=== PATIENT | female | born 1995 | race Caucasian/White ===

== ENCOUNTER 2016-09-13 13:24 | Emergency (ER) | payer MEDICAID, OTHER ==
[~2016-09-13] VITALS: Ht 154.9 cm; Wt 48.0 kg
[~2016-09-13 13:24] MED LIST: FERR-31 PO; NITR-58 PO; PREN-39 PO
[2016-09-13 13:28] VITALS: Ht 154.9 cm; Wt 48.0 kg
[2016-09-13] MEDS ORDERED: METOCLOPRAMIDE 10 MG INJ IV STA (14:02)
[2016-09-13] MEDS ORDERED: SOD CHLORIDE 0.9% 1,000 ML IV STA (14:02)
[2016-09-13 14:51] LABS: ADD SCAN DIFF NO
[2016-09-13 14:57] LABS: BASOPHILS % 0.2 % (0.0-2.0); EOSINOPHILS % 0.1 % (0.0-7.0); HEMATOCRIT 37.6 % (37.0-47.0); HEMOGLOBIN 12.1 g/dl (12.0-16.0); LYMPHOCYTES # 1.7 10^3/ul (0.8-2.9); LYMPHOCYTES % 17.7 % (18.0-55.0); MEAN CORPUSCULAR HEMOGLOBIN 24.7 pg (29.0-33.0); MEAN CORPUSCULAR HGB CONC 32.2 g/dl (32.0-37.0); MEAN CORPUSCULAR VOLUME 76.9 fl (72.0-104.0); MEAN PLATELET VOLUME 9.9 fl (7.4-10.4); MONOCYTE # 0.5 10^3/ul (0.3-0.9); MONOCYTES % 4.8 % (0.0-13.0); NEUTROPHIL # 7.6 10^3/ul (1.6-7.5); NEUTROPHILS % 76.9 % (30.0-74.0); PLATELET COUNT 317 10^3/UL (140-415); RED BLOOD COUNT 4.89 10^6/ul (4.20-5.40); RED CELL DISTRIBUTION WIDTH 17.4 % (11.5-14.5); WHITE BLOOD COUNT 9.9 10^3/ul (4.8-10.8)
[2016-09-13 14:58] LABS: ADD UMIC YES; URINE BILIRUBIN (Dip) 1+ (NEGATIVE); URINE BLOOD (Dip) NEGATIVE (NEGATIVE); URINE COLOR YELLOW (YELLOW); URINE GLUCOSE (Dip) NEGATIVE (NEGATIVE); URINE KETONES (Dip) 3+ (NEGATIVE); URINE LEUKOCYTE ESTERASE (Dip) 1+ (NEGATIVE); URINE NITRITE (Dip) NEGATIVE (NEGATIVE); URINE TOTAL PROTEIN (Dip) 1+ (NEGATIVE); URINE UROBILINOGEN (Dip) 1.0 E.U./dL (0.1-1.0)
[2016-09-13 15:04] LABS: ALBUMIN 4.4 g/dl (3.3-4.9)
[2016-09-13 15:05] LABS: POTASSIUM 3.6 mmol/L (3.5-5.1)
[2016-09-13 15:07] LABS: BILIRUBIN,INDIRECT 0.2 mg/dl (0-1.1); BILIRUBIN,TOTAL 0.2 mg/dl (0.2-1.3); CREATININE 0.44 mg/dl (0.44-1.00)
[2016-09-13 15:08] LABS: ALBUMIN/GLOBULIN RATIO 1.29; CALCIUM 9.6 mg/dl (8.4-10.2); TOTAL PROTEIN 7.8 g/dl (6.1-8.1)
[2016-09-13 15:54] LABS: ICTOTEST NEGATIVE (NEGATIVE); SQUAMOUS EPITHELIAL CELL,UR MODERATE; URINE RBCS 0-2 /HPF (0)
[2016-09-13] MEDS ORDERED: SOD CHLORIDE 0.9% 1,000 ML IV ONE (16:03)
[2016-09-13] MEDS ORDERED: METO10TA92 PO (16:07)
--- NOTE | 2016-09-13 16:18 | ERD ---
ER Documentation Chief Complaint Date/Time DATE: 09/13/16 TIME: 16:16 Chief Complaint 12 weeks with vomiting x 1 week HPI This 20-year-old female presents with vomiting for last week. Which is nonbilious nonbloody. She is approximately 12 weeks by dates. She denies pelvic pain or abdominal pain, vaginal bleeding, diarrhea, fevers, urinary complaints. ROS All systems reviewed and are negative except as per history of present illness. Medications Home Meds Active Scripts Metoclopramide* (Reglan*) 10 Mg Tablet, 10 MG PO Q6 Y for NAUSEA AND/OR VOMITING , #20 TAB Prov:MICHELLE ALEGRE MD 09/13/16 Reported Medications Nitrofurantoin Monohyd Macrocr* (Macrobid*) 100 Mg Capsr, 100 MG PO BID, CAP 01/09/15 Ferrous Sulfate (Iron Supplement) 1 Tab Tablet, 1 TAB PO DAILY 01/09/15 Vits W-Ca,Fe,Fa(<1MG) ( Vitamins) 1 Tab Tablet, 1 TAB PO for 7 Days 11/21/14 Allergies Allergies: Coded Allergies: No Known Allergy (Unverified , 05/16/14) PMhx/Soc Medical and Surgical Hx: pt denies Medical Hx, pt denies Surgical Hx Hx Alcohol Use: No Hx Substance Use: No Hx Tobacco Use: No Smoking Status: Never smoker Physical Exam Vitals Vital Signs Date Time Temp Pulse Resp B/P Pulse Ox O2 Delivery O2 Flow Rate FiO2 09/13/16 13:28 98.1 129 18 120/79 99 Physical Exam Const: [] Head: Atraumatic Eyes: Normal Conjunctiva ENT: Normal External Ears, Nose and Mouth. Neck: Full range of motion..~ No meningismus. Resp: Clear to auscultation bilaterally Cardio: Regular rate and rhythm, no murmurs Abd: Soft, non tender, non distended. Normal bowel sounds Skin: No petechiae or rashes Back: No midline or flank tenderness Ext: No cyanosis, or edema Neur: Awake and alert Psych: Normal Mood and Affect Result Diagram: 09/13/16 1441 09/13/16 1441 Results 24 hrs Laboratory Tests Test 09/13/16 14:41 Alanine Aminotransferase (ALT/SGPT) 16IU/L Albumin 4.4g/dl Albumin/Globulin Ratio 1.29 Alkaline Phosphatase 66IU/L Anion Gap 21 Aspartate Amino Transf (AST/SGOT) 21IU/L Basophils # 0.010^3/ul Basophils % 0.2% Blood Urea Nitrogen 11mg/dl Calcium Level 9.6mg/dl Carbon Dioxide Level 21mmol/L Chloride Level 103mmol/L Creatinine 0.44mg/dl Direct Bilirubin 0.00mg/dl Eosinophils # 0.010^3/ul Eosinophils % 0.1% Globulin 3.40g/dl Glucose Level 81mg/dl Hematocrit 37.6% Hemoglobin 12.1g/dl Indirect Bilirubin 0.2mg/dl Lipase 63U/L Lymphocytes # 1.710^3/ul Lymphocytes % 17.7% Mean Corpuscular Hemoglobin 24.7pg Mean Corpuscular Hemoglobin Concent 32.2g/dl Mean Corpuscular Volume 76.9fl Mean Platelet Volume 9.9fl Monocytes # 0.510^3/ul Monocytes % 4.8% Neutrophils # 7.610^3/ul Neutrophils % 76.9% Nucleated Red Blood Cells # 0.010^3/ul Nucleated Red Blood Cells % 0.0/100WBC Platelet Count 62352^3/UL Potassium Level 3.6mmol/L Red Blood Count 4.8910^6/ul Red Cell Distribution Width 17.4% Sodium Level 141mmol/L Total Bilirubin 0.2mg/dl Total Protein 7.8g/dl Urine Bilirubin 1+ Urine Clarity SLIGHTLY CLOUDY Urine Color YELLOW Urine Glucose NEGATIVE% Urine Hemoglobin NEGATIVE Urine Ictotest NEGATIVE Urine Ketones 3+ Urine Leukocyte Esterase 1+ Urine Microscopic RBC 0-2/HPF Urine Microscopic WBC 0-2/HPF Urine Nitrite NEGATIVE Urine Specific [place] 1.025 Urine Squamous Epithelial Cells MODERATE Urine Total Protein 1+ Urine Urobilinogen 1.0 E.U./dL Urine pH 6.5 White Blood Count 9.910^3/ul Current Medications Medications (Trade) Dose Ordered Sig/Vera Route PRN Reason Start Time Stop Time Status Last Admin Dose Admin Sodium Chloride (NS) 1,000 ml @ 1,000 mls/hr Q1H STAT IV 09/13/16 14:02 09/13/16 15:01 DC 09/13/16 14:49 Metoclopramide HCl 10 mg 10 mg ONCE STAT IV 09/13/16 14:02 09/13/16 14:04 DC 09/13/16 14:48 Sodium Chloride (NS) 1,000 ml @ 0 mls/hr Q0M ONCE IV 09/13/16 16:03 09/13/16 16:08 DC Procedures/MDM Given a one-week history of vomiting of her state. An IV was obtained. Patient was given Reglan 10 mg IV, CBC is normal CMP is normal. Urine shows 1+ leukocytes but white blood cells and no bacteria. Patient felt better after IV fluids, Reglan. Patient had positive heart tones on bedside Doppler exam. Patient presents with vomiting first trimester . Signs and symptoms not consistent with appendicitis, obstruction, significant dehydration. Signs or symptoms not consistent with UTI given absence of the WBCs and bacteria. Patient was treated with Reglan, instructions for bland diet and clear fluids and instructed to follow-up with OB as scheduled in 2 days. She should otherwise return for vomiting despite treatment, fevers, new worsening symptoms, vaginal bleeding, with primary doctor as scheduled. Departure Diagnosis: Primary Impression: Vomiting Vomiting type: unspecified Vomiting Intractability: unspecified Nausea presence: unspecified Qualified Code: R11.10 - Vomiting, intractability of vomiting not specified, presence of nausea not specified, unspecified vomiting type Condition: Stable Patient Instructions: Vomiting (6Y-Adult) Additional Instructions: Drink plenty of fluids and bland diet. Recheck for new or worsening symptoms or primary care doctor. MICHELLE ALEGRE MD Sep 13, 2016 16:18
[2016-09-13 16:31] VITALS: BP 102/66; PULSE 93; RESP 16; TEMP 98.2
== END 2016-09-13 16:33 | disposition home or self-care (01) ==
LOC: FTE 13:24
DX: O21.9 Vomiting of pregnancy, unspecified (principal); Z3A.12 12 weeks gestation of pregnancy
CPT/HCPCS: 36415; 80053; 81001; 83690; 85025; 96361; 96374; J2765; J7030; Z7502; 81003

== ENCOUNTER 2017-03-03 17:10 | Outpatient (CLI) | payer OTHER ==
[~2017-03-03 17:10] MED LIST changes: +METO10TA92 PO
--- NOTE | 2017-03-03 17:31 | RADRPT ---
PROCEDURE: US OB biophysical profile. CLINICAL INDICATION: decreased movements TECHNIQUE: Multiple sonographic images of the pelvis were obtained. The images were reviewed on a PACS workstation. COMPARISON: No prior studies are available for comparison. FINDINGS: There is a single viable intrauterine gestation. Cardiac activity is present with 152 beats per min beena. There is a vertex presentation. The placenta is fundal. There is no evidence of placental abruption. There is a normal amount of amniotic fluid with an MARNIE = 10.4 cm. Biophysical profile: movement 2/2 tone 2/2. breathing 2/2 MARNIE 2/2 Total 02/10 RPTAT: AA . IMPRESSION: Normal biophysical profile. . .Bert Gandara MD, MD Date Time Electronically viewed and signed by .Bert Gandara MD, MD on 03/03/2017 17:30 .S/
[2017-03-03 20:03] LABS: ADD UMIC YES; UR ASCORBIC ACID NEGATIVE (NEGATIVE); UR BACTERIA FEW /HPF (NONE SEEN); UR BILIRUBIN (Dip) NEGATIVE (NEGATIVE); UR BLOOD (Dip) NEGATIVE (NEGATIVE); UR CLARITY SLIGHTLY CLOUDY (CLEAR); UR COLOR YELLOW (YELLOW); UR GLUCOSE (Dip) NEGATIVE (NEGATIVE); UR KETONES (Dip) NEGATIVE (NEGATIVE); UR LEUKOCYTE ESTERASE (Dip) 3+ Leu/ul (NEGATIVE); UR MUCUS FEW /HPF (NONE SEEN); UR NITRITE (Dip) NEGATIVE (NEGATIVE); UR RBC 2 /HPF (0-5); UR SPECIFIC GRAVITY (Dip) 1.018 (1.003-1.030); UR SQUAMOUS EPITHELIAL CELL MODERATE /HPF (FEW); UR TOTAL PROTEIN (Dip) NEGATIVE (NEGATIVE); UR UROBILINOGEN (Dip) 2+ mg/dL (NEGATIVE)
--- NOTE | 2017-03-03 21:47 | TRIAGE ---
OB Triage Datetime Report Generated by CPN: 03/03/2017 21:47 Datetime: 03/03/2017 21:45 Stage of : OB Triage Datetime: 03/03/2017 21:27 Monitor Mode: Palpation Resting Tone [place]: Relaxed Contraction Comments: DR. SARINA PALPATED ABD TO CHECK UC PATTERN Datetime: 03/03/2017 20:30 Labor Evaluation Frequency: 2-6 Monitor Mode: External Duration (sec)2399: 40-60 Pattern: Normal: <= 5 Contractions in 10 Minutes Heart Rate FHR Baseline Rate: 125 FHR Baseline Changes: No Baseline Change Variability: Moderate 6-25 bpm Accelerations: 15X15 Datetime: 03/03/2017 19:38 Stage of : OB Triage Vaginal Exam Dilatation (cms): 3.0 Effacement (%): 50 Station: -2 Exam By: JAMES RN Membrane Status: Intact Datetime: 03/03/2017 19:32 Stage of : OB Triage Maternal Assessment Level of Consciousness: Fully Conscious Headache: Denies Blurred Vision: No Respiratory Effort: Unlabored; Regular Rhythm; Equal Expansion Nausea/Vomiting: Denies RUQ Epigastric Pain: Denies Facial Edema: None Fall Risk Assessment History of Falling: (0) No Secondary Diagnosis: (0) No Ambulatory Aid: (0) Bedrest/Nurse Assist IV Therapy: (0) No Gait: (0) Normal/Bedrest/Immobile Mental Status: (0) Oriented to Own Ability Fall Score: 0 Fall Risk Score Definition: No Risk: No action required Comment: PT. CONTINUES TO AMBULATE HALLWAY, INFORMED PT. TO RETURN TO ROOM FOR RECHECK OF CERVIX, PT. APPEARS COMFORTABLE, WALKING INDEPENDENTLY WITHOUT ASSISTANCE Datetime: 03/03/2017 18:15 Stage of : OB Triage Maternal Assessment Level of Consciousness: Fully Conscious Labor Evaluation Frequency: 9UC/HR Monitor Mode: External Duration (sec)2399: 40-80 Quality: Mild Resting Tone [place]: Relaxed Heart Rate FHR Baseline Rate: 135 Monitor Mode: External US Variability: Moderate 6-25 bpm Accelerations: 15X15 Decelerations: None Category: Category I Pain Assessment Pain Scale: 0 Pain Goal: 3 Membrane Status: Intact Vaginal Bleeding: None Datetime: 03/03/2017 18:13 Vaginal Exam Dilatation (cms): 3.0 Effacement (%): 50 Station: -2 Exam By: CRYSTALI Datetime: 03/03/2017 17:40 Assessment Type: Triage Maternal Assessment Level of Consciousness: Fully Conscious DTR's/Clonus: DTRs 2+; No Clonus Headache: Denies Blurred Vision: No Respiratory Effort: Unlabored; Regular Rhythm; Equal Expansion Breath Sounds, Left: Clear and Equal Breath Sounds, Right: Clear and Equal Nausea/Vomiting: Denies RUQ Epigastric Pain: Denies Lower Extremities Edema: None Degree: None Upper Extremities Edema: None Degree: None Facial Edema: None Fall Risk Assessment History of Falling: (0) No Secondary Diagnosis: (0) No Ambulatory Aid: (0) Bedrest/Nurse Assist IV Therapy: (0) No Gait: (0) Normal/Bedrest/Immobile Mental Status: (0) Oriented to Own Ability Fall Score: 0 Fall Risk Score Definition: No Risk: No action required Datetime: 03/03/2017 17:39 Time of Arrival: 03/03/2017 16:40 EGA: 37.1 Arrived By: Ambulatory Arrived From: Home Chief Complaint: PT HERE C/O DFM Movement: Decreased Contractions: Denies/Absent Rupture of Membranes: Denies Vaginal Bleeding: None Vaginal Discharge: Denies Recent Sexual Intercouse: Denies Abdominal Trauma: Not Applicable Patient Complaints: None Time Provider Notified: 03/03/2017 17:41 Provider Notified: SARINA Initial Plan: BPP/SVE Datetime: 03/03/2017 17:16 Monitor Mode: External Monitor Mode: External US
--- NOTE | 2017-03-03 21:48 | PN ---
Triage Information Date/Time 03/03/17 Reason for visit: DFM Weeks of Gestation 37w1d /Para Diabetes: none Hypertention: none Objective Heart Rate: 140's Contractions: 6-10 Minutes Apart Exam VE 3/50/-2 recked after 2hrs no change even thicker and posterior and firm cervix according to another RN Results/Medications Results 24 hrs Laboratory Tests Test 03/03/17 19:47 Urine Color YELLOW Urine Clarity SLIGHTLY CLOUDY A Urine pH 6.0 Urine Specific [place] 1.018 Urine Ketones NEGATIVE Urine Nitrite NEGATIVE Urine Bilirubin NEGATIVE Urine Urobilinogen 2+ H Urine Leukocyte Esterase 3+ H Urine Microscopic RBC 2 Urine Microscopic WBC 27 H Urine Squamous Epithelial Cells MODERATE Urine Calcium Oxalate Crystals MANY A Urine Bacteria FEW A Urine Mucus FEW A Urine Hemoglobin NEGATIVE Urine Glucose NEGATIVE Urine Total Protein NEGATIVE Medications Rx cephalexin 500mg q6hrs #28 Imaging Results BPP 02/10 MARNIE 10.4 Disposition: Discharge Assessment/Plan IUP 37w1d UTI poss early labor Plan RTH prn with routine labor inatructions increase fluid intake with medication SHANNA BRANCH MD Mar 03, 2017 21:48
== END 2017-03-03 21:30 | disposition home or self-care (01) ==
LOC: L-D 17:10 → OBT 17:10
PROVIDERS: ATTEND Obstetrics & Gynecology
DX: O36.8130 Decreased fetal movements, third trimester, not applicable or unspecified (principal); Z3A.37 37 weeks gestation of pregnancy
CPT/HCPCS: 76818; 81001; Z7500; G0463

== ENCOUNTER 2017-03-16 19:58 | Inpatient (IN) | payer OTHER ==
[~2017-03-16] VITALS: Ht 154.9 cm; Wt 54.5 kg
[~2017-03-16 19:58] MED LIST changes: -METO10TA92 PO; -NITR-58 PO
[2017-03-16 20:34] VITALS: BP 113/73; PULSE 100; RESP 17; Ht 154.9 cm; Wt 54.5 kg
[2017-03-16] MEDS ORDERED: CEPH500C PO (20:41)
[2017-03-16] MEDS ORDERED: CARBOPROST 250 MCG INJ IM PRN (21:30)
[2017-03-16] MEDS ORDERED: LIDOCAINE 1% (MPF) 30 ML INJ INJ PRN (21:30)
[2017-03-16] MEDS ORDERED: HYDROCODONE/APAP (5/325) TAB PO PRN (21:30)
[2017-03-16] MEDS ORDERED: IBUPROFEN 600 MG TAB PO PRN (21:30)
[2017-03-16] MEDS ORDERED: BUTORPHANOL 2 MG INJ IV PRN ×2 (21:30)
[2017-03-16] MEDS ORDERED: OXYTOCIN 30 UNITS/LR 500 ML IV SCH ×2 (21:30)
[2017-03-16] MEDS ORDERED: MISOPROSTOL 200 MCG TAB PR PRN (21:30)
[2017-03-16] MEDS ORDERED: METHYLERGONOVINE 0.2 MG INJ IM PRN (21:30)
[2017-03-16] MEDS ORDERED: LACTATED RINGER'S 1,000 ML IV PRN (21:30)
[2017-03-16] MEDS ORDERED: OXYTOCIN 30 UNITS/LR 500 ML IV PRN (21:30)
[2017-03-16] MEDS: LACTATED RINGER'S 1,000 ML IV SCH (21:51)
[2017-03-16 22:11] LABS: ABNORMAL IP MESSAGE 1; HEMATOCRIT 24.5 % (37.0-47.0); MEAN CORPUSCULAR HEMOGLOBIN 18.2 pg (29.0-33.0); MEAN CORPUSCULAR HGB CONC 27.8 g/dl (32.0-37.0); MEAN CORPUSCULAR VOLUME 65.7 fl (72.0-104.0); MEAN PLATELET VOLUME 10.7 fl (7.4-10.4); NUCLEATED RED BLOOD CELLS% 1.5 /100WBC (0.0-0.0); PLATELET COUNT 293 10^3/UL (140-415); RED BLOOD COUNT 3.73 10^6/ul (4.20-5.40); RED CELL DISTRIBUTION WIDTH 18.7 % (11.5-14.5); WHITE BLOOD COUNT 8.9 10^3/ul (4.8-10.8)
[2017-03-16 22:20] LABS: INR 1.01; PROTIME 13.3 Sec (12.2-14.2)
[2017-03-16 22:21] LABS: PARTIAL THROMBOPLASTIN TIME 26.4 Sec (25.0-35.0)
[2017-03-16 22:27] LABS: POSITIVE DIFF @See below
[2017-03-16 22:28] LABS: HEMOGLOBIN 6.8 g/dl (12.0-16.0)
[2017-03-16 23:06] LABS: LYMPHOCYTES # 2.8 10^3/ul (0.8-2.9); MONOCYTE # 0.4 10^3/ul (0.3-0.9); MONOCYTES % (M) 4 % (0-13)
[2017-03-16 23:08] LABS: HYPOCHROMASIA 2+ (0-0); MICROCYTOSIS 2+ (0-0)
[2017-03-17] MEDS: LACTATED RINGER'S 1,000 ML IV SCH ×3 (05:12→16:42)
[2017-03-17] MEDS ORDERED: OXYTOCIN 30 UNITS/LR 500 ML IV SCH (09:30)
[2017-03-17] MEDS ORDERED: FENTAnyl 2MCG/ML-ROPIV 0.2% 100 ML ONE (16:06)
[2017-03-17] MEDS ORDERED: ONDANSETRON 4 MG INJ IV PRN (18:00)
[2017-03-17] MEDS ORDERED: NALOXONE (0.4 MG/ML) INJ IV PRN (18:00)
[2017-03-17] MEDS ORDERED: FENTAnyl 2MCG/ML-ROPIV 0.2% 100 ML BAG EPI SCH (18:00)
[2017-03-17] MEDS ORDERED: DIPHENHYDRAMINE 50 MG INJ IV PRN (18:00)
--- NOTE | 2017-03-17 21:14 | HP ---
Date/Time of Note Date/Time of Note DATE: 03/17/17 TIME: 21:06 OB - History Hx of Present Free Text/Dictation 20y.o at 39w !d was admitted caitlyn induction of labor initial exam showed 3/60% -3 late entry and non compliant on admission H&H 6.8/24.5 x2 unit of RBc ready admitted for augmentation of labor with pitocin Chief Complaint: INduction of labor Estimated Due Date: Mar 23, 2017 : 2 Para: 1 Spontaneous : 0 Therapeutic : 0 Care: Limited Care Obstetrical Complications: None Medical Complications: Other (anemia) Past Family/Social History * Past Medical, Surgical, Family and Obstetric Histories reviewed from chart. Blood Type: A+ Rubella: immune RPR/VDRL: Negative GBS Status: Negative HBsAG: Negative OB Admission Exam Vital Signs Vital Signs Vital Signs Date Time Temp Pulse Resp B/P Pulse Ox O2 Delivery O2 Flow Rate FiO2 03/16/17 20:34 98.4 100 17 113/73 Room Air Physical Exam HEENT: WNL Heart: Rhythm Normal Lungs: Clear, Equal Abdomen: WNL Extremities: Normal Reflexes: Normal Cervical Dilatation: 3cm Effacement: Other (60%) Membranes: Intact Amniotic Fluid: Unevaluable Heart Rate: 130's Accelerations: Accelerations Present Decelerations: No Decelerations Varibility: Moderate Contractions on Admission: < 5 Minutes Apart Intensity: Mild Last 72 hours Lab Results CBC & BMP 03/16/17 21:40 OB Assessment/Plan Other Assessment: IUP 39w1d in early labor severe anemia Plan: Other (augmentation) Induction Method: per Pitocin Protocol Other plan: blood transfusion SHANNA BRANCH MD Mar 17, 2017 21:14
--- NOTE | 2017-03-17 21:18 | LDN ---
Date/Time of Note Date/Time of Note DATE: 03/17/17 TIME: 21:15 Delivery Summary normal vaginal delivery Weeks of Gestation 39w1d Placenta Delivered: Spontaneously Meconium: none Episiotomy: No Perineal laceration: 2 Laceration repair: 00ch gut Anesthesia type: Epidural Estimated blood loss: 300 Sponge & Needle done & correct: Yes All needle counts correct: Yes Any foreign bodies felt in the: No Problems: Delivery Information Sex Sex: male Apgars 1 Minute: 8 5 Minute: 9 Suctioning Nose & mouth suctioned at isaak: Yes Delee suction performed: No Umbilical Cord Umbilical cord with: 3 Vessels Cord Blood was obtained: Yes Mother & Baby Disposition Disposition Mom & Baby to Maternity; Good: Yes Mom transferred to: Other () Baby to NICU: No SHANNA BRANCH MD Mar 17, 2017 21:18
[2017-03-17] MEDS: FAMOTIDINE 20 MG INJ IV SCH (22:10)
[2017-03-18] MEDS ORDERED: LANOLIN 7 GM TUBE TOP PRN (01:00)
[2017-03-18] MEDS ORDERED: ZOLPIDEM 5 MG TAB PO PRN (01:00)
[2017-03-18] MEDS ORDERED: BENZOCAINE 20% 56 ML SPRAY TOP PRN (01:00)
[2017-03-18] MEDS ORDERED: MISOPROSTOL 200 MCG TAB PR PRN (01:00)
[2017-03-18] MEDS ORDERED: CARBOPROST 250 MCG INJ IM PRN (01:00)
[2017-03-18] MEDS ORDERED: OXYCODONE/ASPIRIN (4.88/325) TAB PO PRN ×2 (01:00)
[2017-03-18] MEDS ORDERED: METHYLERGONOVINE 0.2 MG INJ IM PRN (01:00)
[2017-03-18] MEDS ORDERED: WITCH HAZEL/GLYCERIN PAD PR PRN (01:00)
[2017-03-18] MEDS ORDERED: OXYTOCIN 30 UNITS/LR 500 ML IV PRN (01:00)
[2017-03-18 02:05] VITALS: BP 115/85; PULSE 72; RESP 20
[2017-03-18 03:01] LABS: ABNORMAL IP MESSAGE 1; BASOPHILS % 0.1 % (0.0-2.0); HEMATOCRIT 28.1 % (37.0-47.0); HEMOGLOBIN 8.6 g/dl (12.0-16.0); LYMPHOCYTES # 1.3 10^3/ul (0.8-2.9); LYMPHOCYTES % 5.7 % (18.0-55.0); MEAN CORPUSCULAR HEMOGLOBIN 22.8 pg (29.0-33.0); MEAN CORPUSCULAR HGB CONC 30.6 g/dl (32.0-37.0); MEAN CORPUSCULAR VOLUME 74.3 fl (72.0-104.0); MEAN PLATELET VOLUME 9.9 fl (7.4-10.4); MONOCYTE # 1.1 10^3/ul (0.3-0.9); MONOCYTES % 4.8 % (0.0-13.0); NEUTROPHILS % 88.7 % (30.0-74.0); NUCLEATED RED BLOOD CELLS # 0.1 10^3/ul (0.0-0.0); NUCLEATED RED BLOOD CELLS% 0.6 /100WBC (0.0-0.0); PLATELET COUNT 199 10^3/UL (140-415); RED BLOOD COUNT 3.78 10^6/ul (4.20-5.40); RED CELL DISTRIBUTION WIDTH 25.6 % (11.5-14.5); WHITE BLOOD COUNT 22.3 10^3/ul (4.8-10.8)
[2017-03-18 03:11] LABS: POSITIVE DIFF @See below
[2017-03-18 04:45] VITALS: BP 118/81; PULSE 72; RESP 20
[2017-03-18] MEDS: LACTATED RINGER'S 1,000 ML IV SCH ×4 (05:46→22:00)
[2017-03-18] MEDS: IBUPROFEN 600 MG TAB PO SCH ×3 (06:00→18:00)
[2017-03-18 08:15] VITALS: BP 116/74; PULSE 81; RESP 17
[2017-03-18] MEDS: SENNA/DOCUSATE NA (8.6MG/50MG) TAB PO SCH ×3 (09:00→21:00)
[2017-03-18 10:23] LABS: ABNORMAL IP MESSAGE 1; BASOPHIL # 0.1 10^3/ul (0.0-0.1); BASOPHILS % 0.2 % (0.0-2.0); HEMATOCRIT 25.5 % (37.0-47.0); HEMOGLOBIN 7.6 g/dl (12.0-16.0); LYMPHOCYTES # 2.8 10^3/ul (0.8-2.9); LYMPHOCYTES % 12.1 % (18.0-55.0); MEAN CORPUSCULAR HEMOGLOBIN 21.7 pg (29.0-33.0); MEAN CORPUSCULAR HGB CONC 29.8 g/dl (32.0-37.0); MEAN CORPUSCULAR VOLUME 72.6 fl (72.0-104.0); MONOCYTE # 1.2 10^3/ul (0.3-0.9); MONOCYTES % 5.2 % (0.0-13.0); NEUTROPHILS % 81.9 % (30.0-74.0); NUCLEATED RED BLOOD CELLS # 0.1 10^3/ul (0.0-0.0); NUCLEATED RED BLOOD CELLS% 0.5 /100WBC (0.0-0.0); PLATELET COUNT 215 10^3/UL (140-415); RED BLOOD COUNT 3.51 10^6/ul (4.20-5.40); RED CELL DISTRIBUTION WIDTH 25.3 % (11.5-14.5); WHITE BLOOD COUNT 23.2 10^3/ul (4.8-10.8)
[2017-03-18 10:25] LABS: POSITIVE DIFF @See below
[2017-03-18 12:25] VITALS: BP 111/73; PULSE 86; RESP 18
[2017-03-18] MEDS: FAMOTIDINE 20 MG INJ IV SCH ×2 (12:28→21:00)
--- NOTE | 2017-03-18 14:46 | PN ---
Date/Time of Note Date/Time of Note DATE: 03/18/17 TIME: 14:43 OB Subjective Subjective Subjective feels ok OB Objective Objective Objective vss aferile fundus firm lochia kin calf neg for tenderness OB Assessment/Plan Other Assessment: anemia but stable leukocytisis Other plan: SHANNA Braga MD Mar 18, 2017 14:45
[2017-03-18] MEDS: CEFAZOLIN 2 GM/50 ML (PMX) 50 ML IVPB SCH ×2 (15:00→22:49)
[2017-03-18 15:15] VITALS: BP 90/62; PULSE 73; RESP 17
[2017-03-18 18:32] LABS: ABNORMAL IP MESSAGE 1; BASOPHIL # 0.1 10^3/ul (0.0-0.1); BASOPHILS % 0.3 % (0.0-2.0); HEMOGLOBIN 7.9 g/dl (12.0-16.0); LYMPHOCYTES # 3.3 10^3/ul (0.8-2.9); LYMPHOCYTES % 15.1 % (18.0-55.0); MEAN CORPUSCULAR HEMOGLOBIN 21.4 pg (29.0-33.0); MEAN CORPUSCULAR HGB CONC 29.3 g/dl (32.0-37.0); MEAN CORPUSCULAR VOLUME 73.2 fl (72.0-104.0); MEAN PLATELET VOLUME 10.1 fl (7.4-10.4); MONOCYTES % 4.4 % (0.0-13.0); NEUTROPHILS % 79.5 % (30.0-74.0); NUCLEATED RED BLOOD CELLS # 0.1 10^3/ul (0.0-0.0); NUCLEATED RED BLOOD CELLS% 0.5 /100WBC (0.0-0.0); PLATELET COUNT 227 10^3/UL (140-415); RED BLOOD COUNT 3.69 10^6/ul (4.20-5.40); RED CELL DISTRIBUTION WIDTH 25.2 % (11.5-14.5)
[2017-03-18 18:43] LABS: POSITIVE DIFF @See below
[2017-03-18 20:00] VITALS: BP 98/58; PULSE 80; RESP 19
[2017-03-19 04:38] VITALS: BP 98/55; PULSE 79; RESP 18
[2017-03-19] MEDS: LACTATED RINGER'S 1,000 ML IV SCH ×2 (04:55→05:12)
[2017-03-19] MEDS: CEFAZOLIN 2 GM/50 ML (PMX) 50 ML IVPB SCH (05:06)
[2017-03-19] MEDS: IBUPROFEN 600 MG TAB PO SCH ×4 (05:22→17:38)
[2017-03-19 08:00] VITALS: BP 100/59; PULSE 75; RESP 19
[2017-03-19] MEDS: SENNA/DOCUSATE NA (8.6MG/50MG) TAB PO SCH (09:00)
[2017-03-19] MEDS: FAMOTIDINE 20 MG INJ IV SCH (09:00)
[2017-03-19] MEDS ORDERED: DIPHTH/TET/ACEL PERTUSS (ADULT) 0.5 ML VIAL IM* ONE (09:00)
[2017-03-19 09:30] LABS: ABNORMAL IP MESSAGE 1; BASOPHILS % 0.2 % (0.0-2.0); EOSINOPHILS # 0.1 10^3/ul (0.0-0.5); EOSINOPHILS % 0.6 % (0.0-7.0); LYMPHOCYTES # 4.5 10^3/ul (0.8-2.9); LYMPHOCYTES % 27.7 % (18.0-55.0); MEAN CORPUSCULAR HEMOGLOBIN 22.8 pg (29.0-33.0); MEAN CORPUSCULAR VOLUME 75.9 fl (72.0-104.0); MEAN PLATELET VOLUME 10.9 fl (7.4-10.4); NEUTROPHIL # 10.5 10^3/ul (1.6-7.5); NUCLEATED RED BLOOD CELLS # 0.1 10^3/ul (0.0-0.0); NUCLEATED RED BLOOD CELLS% 0.3 /100WBC (0.0-0.0); PLATELET COUNT 215 10^3/UL (140-415); RED BLOOD COUNT 3.03 10^6/ul (4.20-5.40); RED CELL DISTRIBUTION WIDTH 25.1 % (11.5-14.5); WHITE BLOOD COUNT 16.2 10^3/ul (4.8-10.8)
[2017-03-19 09:33] LABS: POSITIVE DIFF @See below
[2017-03-19 09:34] LABS: HEMOGLOBIN 6.9 g/dl (12.0-16.0)
[2017-03-19] MEDS ORDERED: MAGNESIUM HYDROXIDE 30ML CUP PO SCH (10:00)
--- NOTE | 2017-03-19 10:07 | DS ---
Date/Time of Note Date/Time of Note DATE: 03/19/17 TIME: 10:07 Obstetrical Discharge Record Final Diagnosis Final Diagnosis: Term delivered Vaginal Delivery Obstetrical Delivery: Spontaneous, Laceration, Repaired Complications Augmentation: Yes Rupture of Membranes: No Condition on Discharge Physical Assessment Last Vitals: vss afebrile Voiding: Yes Bowel Movement: Yes Breast: Soft, non-tender Calf Tenderness: No Patient Condition: Stable SHANNA BRANCH MD Mar 19, 2017 10:07
--- NOTE | 2017-03-19 10:09 | PD.PPDC ---
TOOL REPAIRER BENCH Discharge Instruction Diagnosis Final Diagnosis: s/p normal vaginal delivery, anemia Condition Patient Condition: Stable Diet Diet: Resume Regular Diet Activity/Restrictions Activity: May Shower Restrictions: No Exercising No Lifting No Sexual Activity Nothing in the Vagina No [place] No Tampons, douche Follow-up Follow-up with Physician: 2, 6, Week/Weeks Return to clinic for PUTTIER Instructions: Fever greater than 101 Chills Worsening abdominal pain Excessive Vaginal Bleeding More than 2 pads per hour Unable to tolerate diet OB Instructions: Breast Tenderness Depression Blurried Vision Headache SHANNA BRANCH MD Mar 19, 2017 10:09
[2017-03-19 16:00] VITALS: BP 108/62; PULSE 70
[2017-03-19 16:26] LABS: PATH REVIEW Y
== END 2017-03-19 20:10 | disposition home or self-care (01) | DRG 775 ==
LOC: L-D 19:58 → PP1 03-18 02:07
PROVIDERS: ADMIT Obstetrics & Gynecology; ATTEND Obstetrics & Gynecology
PROC: 10E0XZZ Delivery of Products of Conception, External Approach (ICD-10-PCS; principal; 2017-03-17)
PROC: 0KQM0ZZ Repair Perineum Muscle, Open Approach (ICD-10-PCS; 2017-03-17)
PROC: 3E033VJ Introduction of Other Hormone into Peripheral Vein, Percutaneous Approach (ICD-10-PCS; 2017-03-17)
DX: O70.1 Second degree perineal laceration during delivery (principal); Z37.0 Single live birth; Z3A.39 39 weeks gestation of pregnancy
CPT/HCPCS: 36430; 85025; 85610; 85730; 86592; 86706; 86850; 86900; 86901; 86920; 87340; 90715; A4310; J0690; J2210; J2405; J2590; J3010; J7120; P9016

== ENCOUNTER 2018-07-05 16:03 | Emergency (ER) | payer OTHER ==
[~2018-07-05] VITALS: Wt 49.6 kg
[~2018-07-05 16:03] MED LIST changes: +CEPH500C PO; -FERR-31 PO
[2018-07-05] MEDS ORDERED: METOCLOPRAMIDE 10 MG INJ IV ONE (16:30)
[2018-07-05] MEDS ORDERED: DIPHENHYDRAMINE 50 MG INJ IV ONE (16:30)
--- NOTE | 2018-07-05 18:14 | ERD ---
ER Documentation Chief Complaint Chief Complaint nausea and vomiting denies abd pain unknown gestation - HPI 22-year-old female presents with nonbilious nonbloody vomiting for past few days. Patient states that she just found out she was a couple weeks ago with a urine test. Patient states that she is usually irregular and does not remember her last menstrual period. Patient states that she does not have an NEWS WRITER. She denies abdominal/pelvic pain. Denies fevers, dysuria or diarrhea. ROS All systems reviewed and are negative except as per history of present illness. Medications Home Meds Active Scripts Metoclopramide* (Reglan*) 10 Mg Tablet, 10 MG PO Q6 PRN for NAUSEA AND/OR VOMITING, #10 TAB Prov:KINGSLEY CASEY PA-C 07/05/18 Vits #93-Iron Fum-FA ( Formula) 1 Each Tablet, 1 TAB PO DAILY, #30 TAB Prov:KINGSLEY CASEY PA-C 07/05/18 Cephalexin* (Keflex*) 500 Mg Capsule, 500 MG PO BID for 7 Days, CAP Prov:KINGSLEY CASEY PA-C 07/05/18 Reported Medications Cephalexin* (Cephalexin*) 500 Mg Capsule, 500 MG PO Q6, #28 CAP 03/16/17 Vits W-Ca,Fe,Fa(<1MG) ( Vitamins) 1 Tab Tablet, 1 TAB PO for 7 Days 11/21/14 Allergies Allergies: Coded Allergies: No Known Allergy (Unverified , 03/16/17) PMhx/Soc Medical and Surgical Hx: pt denies Medical Hx, pt denies Surgical Hx Hx Alcohol Use: No Hx Substance Use: No Hx Tobacco Use: No Smoking Status: Never smoker Physical Exam Vitals Vital Signs Date Temp Pulse Resp B/P (MAP) Pulse Ox O2 O2 Flow FiO2 Time Delivery Rate 07/05/18 99.4 103 17 105/70 98 Room Air 19:00 (82) 07/05/18 99.0 113 20 116/81 99 16:06 (93) Physical Exam Const: No acute distress Head: Atraumatic Eyes: Normal Conjunctiva ENT: Normal External Ears, Nose and Mouth. Neck: Full range of motion. No meningismus. Resp: Clear to auscultation bilaterally Cardio: Regular rate and rhythm, no murmurs Abd: Soft, non tender, non distended. Normal bowel sounds Skin: No petechiae or rashes Back: No midline or flank tenderness Ext: No cyanosis, or edema Neur: Awake and alert Psych: Normal Mood and Affect Result Diagram: 07/05/18 1644 07/05/18 1644 Results 24 hrs Laboratory Tests Test 07/05/18 16:44 07/05/18 18:17 White Blood Count 10.9 10^3/ul Red Blood Count 4.75 10^6/ul Hemoglobin 11.6 g/dl Hematocrit 36.2 % Mean Corpuscular Volume 76.2 fl Mean Corpuscular Hemoglobin 24.4 pg Mean Corpuscular Hemoglobin Concent 32.0 g/dl Red Cell Distribution Width 16.0 % Platelet Count 317 10^3/UL Mean Platelet Volume 9.7 fl Immature Granulocytes % 0.200 % Neutrophils % 81.1 % Lymphocytes % 14.1 % Monocytes % 4.0 % Eosinophils % 0.3 % Basophils % 0.3 % Nucleated Red Blood Cells % 0.0 /100WBC Immature Granulocytes # 0.020 10^3/ul Neutrophils # 8.8 10^3/ul Lymphocytes # 1.5 10^3/ul Monocytes # 0.4 10^3/ul Eosinophils # 0.0 10^3/ul Basophils # 0.0 10^3/ul Nucleated Red Blood Cells # 0.0 10^3/ul Sodium Level 140 mmol/L Potassium Level 3.8 mmol/L Chloride Level 106 mmol/L Carbon Dioxide Level 16 mmol/L Anion Gap 18 Blood Urea Nitrogen 8 mg/dl Creatinine 0.32 mg/dl Est Glomerular Filtrat Rate mL/min > 60 mL/min Glucose Level 84 mg/dl Calcium Level 9.6 mg/dl Total Bilirubin 0.2 mg/dl Direct Bilirubin 0.00 mg/dl Indirect Bilirubin 0.2 mg/dl Aspartate Amino Transf (AST/SGOT) 20 IU/L Alanine Aminotransferase (ALT/SGPT) 15 IU/L Alkaline Phosphatase 69 IU/L Total Protein 7.8 g/dl Albumin 4.7 g/dl Globulin 3.10 g/dl Albumin/Globulin Ratio 1.51 Beta HCG, Quantitative 604688.0 mIU/ml Urine Color YELLOW Urine Clarity SLIGHTLY CLOUDY Urine pH 6.0 Urine Specific [place] 1.026 Urine Ketones 2+ mg/dL Urine Nitrite NEGATIVE mg/dL Urine Bilirubin NEGATIVE mg/dL Urine Urobilinogen 1+ mg/dL Urine Leukocyte Esterase TRACE Lyla/ul Urine Microscopic RBC 18 /HPF Urine Microscopic WBC 4 /HPF Urine Squamous Epithelial Cells FEW /HPF Urine Bacteria FEW /HPF Urine Mucus FEW /HPF Urine Hemoglobin 1+ mg/dL Urine Glucose NEGATIVE mg/dL Urine Total Protein 2+ mg/dl Current Medications Medications Dose Sig/Vera Start Time Status Last (Trade) Ordered Route PRN Stop Time Admin Dose Reason Admin 10 mg ONCE ONCE 07/05/18 DC 07/05/18 Metoclopramid IV 16:30 16:48 e HCl 07/05/18 (Reglan) 16:32 25 mg ONCE ONCE 07/05/18 DC 07/05/18 Diphenhydrami IV 16:30 16:48 ne HCl 07/05/18 (Benadryl) 16:32 Cephalexin 500 mg ONCE ONCE 07/05/18 DC 07/05/18 (Keflex) PO 19:00 18:51 07/05/18 19:01 Procedures/MDM 22-year-old female who is 14 weeks presents with nausea and vomiting for the past few days. Did not have any abdominal pain, she is afebril e and well-appearing. Lab work was obtained, patient had mild leukocytosis. Urinalysis showed possible infection therefore she will be empirically treated with Keflex. Beta-hCG level is 116,310 OB ultrasound was ordered which showed 14 weeks and 6 days. Patient is stable to be discharged home with prescription for Reglan, Keflex and instructed to follow-up with an NEWS WRITER. Return precautions have been given she understands and agrees with this plan PROCEDURE: US OB. CLINICAL INDICATION: Size and dates TECHNIQUE: Multiple sonographic images of the pelvis and gravid uterus were obtained. The images were reviewed on a PACS workstation. COMPARISON: Ultrasound 03/03/2017 FINDINGS: There is a single viable intrauterine gestation. There is a vertex presentation. The placenta is posterior. There is no evidence for an abruption or placenta pre via. Measurements were made in order to determine age. The results are as follows: BPD = 2.73 cm HC = 10.60 cm AC = 8.91 cm FL = 1.55 cm EFW = 109 g HR= 152 bpm MVP = 4.10 cm Estimated gestational age of approximately 14 weeks and 6 days based on ultrasound measurements. The estimated date of delivery is 12/28/2018. IMPRESSION: Single viable intrauterine gestation of approximately 14 weeks and 6 days based on ultrasound measurements. Departure Diagnosis: Primary Impression: Nausea and vomiting Condition: Stable KINGSLEY CASEY PA-C Jul 05, 2018 18:14
[2018-07-05] MEDS ORDERED: METO10TA92 PO (18:45)
[2018-07-05] MEDS ORDERED: PREN-6 PO (18:45)
[2018-07-05] MEDS ORDERED: CEPH-443 PO (18:45)
[2018-07-05 19:00] VITALS: BP 105/70; PULSE 103; RESP 17
[2018-07-05] MEDS ORDERED: CEPHALEXIN 500 MG CAP PO ONE (19:00)
== END 2018-07-05 19:00 | disposition home or self-care (01) ==
LOC: FTE 16:03
DX: O21.9 Vomiting of pregnancy, unspecified (principal); Z3A.14 14 weeks gestation of pregnancy
CPT/HCPCS: 76805; 80053; 81001; 84702; 85025; 86900; 86901; 87086; 96374; 96375; J1200; J2765; Z7502; Z7610

== ENCOUNTER 2018-07-11 13:50 | Emergency (ER) | payer OTHER ==
[~2018-07-11] VITALS: Ht 157.5 cm; Wt 47.7 kg
[~2018-07-11 13:50] MED LIST changes: +CEPH-443 PO; +METO10TA92 PO; +PREN-6 PO
[2018-07-11 13:54] VITALS: Ht 157.5 cm; Wt 47.7 kg
[2018-07-11] MEDS ORDERED: SOD CHLORIDE 0.9% 1,000 ML IV STA ×2 (15:06→18:00)
[2018-07-11] MEDS ORDERED: ONDANSETRON 4 MG INJ IV STA (15:06)
--- NOTE | 2018-07-11 16:22 | NUR ---
SS Note: SS Consult Pt's a 22 y/o female presenting w/ 15 week PNC, Depression and Anxiety. Pt's A/OX4, ambulatory and resting comfortably in bed, mother at bedside lending emotional support. Pt lives w/ spouse, Reagan Rojas in a 1st floor Apt, makes own medical decisions and contracts for safety. Pt reports having difficulty eating since learning she's (06/17/18). Pt's states she did not plan the PNC however, she's going to keep the child. Pt denies having SI, HI, AH/VH, states she does not want to have anymore children after this delivery. Pt states she's afraid she's going to vomit if she eats and has not experienced nausea and vomiting w/ previous PNC's. SWer asked pt is her in agreement w/ her plan to d/c having children? Pt replied "I haven't talked to him yet." Pt will be seen by Telepsychiatrist in the ER and does not meet criteria for admission. DCP pending status, ER MD. aware, SWer to remain available for f/u and assistance as needed.
[2018-07-11] MEDS ORDERED: OLANZAPINE 2.5 MG TAB PO ONE (18:00)
--- NOTE | 2018-07-11 18:08 | PSY ---
Date/Time of Note Date/Time of Note DATE: 07/11/18 TIME: 17:52 Psychiatric Subjective Eval Consent Pt consented to telemedicine: Yes Subjective Evaluation Patient location: emergency Chief Complaint: Patient brought by mother who is concerned about her depression Reason for consult: depression History of present illness patient is a 22 yo female living with her and 2 kids, with no PPH 4 months who came to the ER due to feeling depressed and not eating for about 2 weeks due to "my mind telling me not to eat " and due to nausea and vomitting, she told the ER doctor that she did not want to be and was on contraception, she told her that she was keeping the baby due to cultural reasons, she already has 2 kids with her . she states that she has been hearing voices telling her not to eat because she does not want to have the baby, she states that she has been feeling depressed, hopeless and helpless since she found out she was as well as anxious and unable to sleep, she denies any drug or alcohol abuse, denies any si or hi, and mother at bed side confirm her history, she states that she does not want to be discharged because she is afraid she might not be eating. Past psychiatric history denies Hospitalization: no Family History denies Medical history Problems Medical Problems: (1) Hyperemesis Status: Acute (2) Nausea and vomiting Status: Acute (3) Pyuria Status: Acute (4) Vomiting Status: Acute Allergies: Coded Allergies: No Known Allergy (Unverified , 07/11/18) Substance Abuse Substance use: No known substance abuse Social History Marital status: Level of education: hs DPA/Conservatorship: No Occupation/Intermediate: no Psychiatric Objective Eval Review of Systems: Review of Systems: Not Applicable Physical Examination: Physical Examination: Applicable Sleep: Insomnia Appetite: Decreased, Weight Loss Energy: Decreased Interest: Decreased Mental Status Examination: Appearance: Groomed Eye Contact: Good Psychomotor Activity: Normal Behavior: Cooperative Speech: Clear AFFECT: Depressed Mood: Depressed Though Process: Linear Thought Content: Hallucinations Suicidal: No Homicidal: No On 72 hour hold: No Orientation: x3 Cognition: Alert Insight: Impared Judgement: Impared Attention Span: Distractible Laboratory Results Laboratory Tests Test 07/11/18 14:46 White Blood Count 12.5 10^3/ul Red Blood Count 4.99 10^6/ul Hemoglobin 12.2 g/dl Hematocrit 37.1 % Mean Corpuscular Volume 74.3 fl Mean Corpuscular Hemoglobin 24.4 pg Mean Corpuscular Hemoglobin Concent 32.9 g/dl Red Cell Distribution Width 16.6 % Platelet Count 275 10^3/UL Mean Platelet Volume 9.7 fl Immature Granulocytes % 0.300 % Neutrophils % 81.4 % Lymphocytes % 11.1 % Monocytes % 6.7 % Eosinophils % 0.3 % Basophils % 0.2 % Nucleated Red Blood Cells % 0.0 /100WBC Immature Granulocytes # 0.040 10^3/ul Neutrophils # 10.2 10^3/ul Lymphocytes # 1.4 10^3/ul Monocytes # 0.8 10^3/ul Eosinophils # 0.0 10^3/ul Basophils # 0.0 10^3/ul Nucleated Red Blood Cells # 0.0 10^3/ul Prothrombin Time 17.9 Sec Prothrombin Time Ratio 1.4 INR International Normalized Ratio 1.47 Activated Partial Thromboplast Time 28.1 Sec Urine Color MYRON Urine Clarity CLOUDY Urine pH 6.0 Urine Specific [place] 1.021 Urine Ketones 2+ mg/dL Urine Nitrite NEGATIVE mg/dL Urine Bilirubin NEGATIVE mg/dL Urine Urobilinogen 2+ mg/dL Urine Leukocyte Esterase TRACE Lyla/ul Urine Microscopic RBC 2 /HPF Urine Microscopic WBC 3 /HPF Urine Squamous Epithelial Cells MODERATE /HPF Urine Bacteria FEW /HPF Urine Mucus FEW /HPF Urine Hemoglobin NEGATIVE mg/dL Urine Glucose NEGATIVE mg/dL Urine Total Protein 2+ mg/dl Sodium Level 137 mmol/L Potassium Level 3.2 mmol/L Chloride Level 103 mmol/L Carbon Dioxide Level 19 mmol/L Anion Gap 15 Blood Urea Nitrogen 5 mg/dl Creatinine 0.40 mg/dl Est Glomerular Filtrat Rate mL/min > 60 mL/min Glucose Level 115 mg/dl Calcium Level 9.7 mg/dl Total Bilirubin 0.2 mg/dl Direct Bilirubin 0.00 mg/dl Indirect Bilirubin 0.2 mg/dl Aspartate Amino Transf (AST/SGOT) 73 IU/L Alanine Aminotransferase (ALT/SGPT) 73 IU/L Alkaline Phosphatase 82 IU/L Total Protein 8.4 g/dl Albumin 4.6 g/dl Globulin 3.80 g/dl Albumin/Globulin Ratio 1.21 Salicylates Level < 1.0 mg/dl Acetaminophen Level < 10.0 ug/ml Ethyl Alcohol Level < 10.0 mg/dl Assessment and Plan Assessment/Diagnosis Diagnosis unspecified mood do Recommendation/Plan Medication Management zyprexa 2.5 mg po bid first dose now Multiple antipsychotics: No Discharge Disposition: Psychiatric inpatient Legal Status: Place involuntary hold Other In my opinion, patient currently MEETS criterion for inpatient care and CANNOT be safely treated at a lower level of care today as evidenced by the following risk factors: voluntarily not eating due to delusion and hallucination and not eating due to a unacceptable wish to harm her baby PIETRO SLOAN MD Jul 11, 2018 18:03
--- NOTE | 2018-07-11 19:11 | ERD ---
ER Documentation Chief Complaint Chief Complaint Patient brought by mother who is concerned about her depression HPI This is a 22-year-old female 3 para 2 roughly 15 weeks dated by last mental period who has not received any care. The patient presents to the emergency department as she states she is feeling sad. She states she has no suicidal homicidal thoughts or ideations. She indicated that this was not a planned and she was on oral contraceptive pills 1 she became . She is to healthy children at home. She lives with her . She was seen and evaluated in the emergency department roughly 6 days ago for dehydration. She indicates she has had no abdominal tenderness or vaginal bleeding. Her family stated they were very concerned as they state the patient had decreased interaction with her children at home, refuses to eat, is hearing voices, is very tearful, and has been not wanting to get out of bed. When I was spoke with the patient alone she stated that this was not a planned but she does not have any thoughts of wanting to terminate the . She states that "her mind is telling her not to eat." She states she is afraid that she will vomit. However she also indicates that her mind is telling her "to not feed the baby." ROS All systems reviewed and are negative except as per history of present illness. Medications Home Meds Discontinued Reported Medications Cephalexin* (Cephalexin*) 500 Mg Capsule, 500 MG PO Q6, #28 CAP 03/16/17 Vits W-Ca,Fe,Fa(<1MG) ( Vitamins) 1 Tab Tablet, 1 TAB PO for 7 Days 11/21/14 Discontinued Scripts Metoclopramide* (Reglan*) 10 Mg Tablet, 10 MG PO Q6 PRN for NAUSEA AND/OR VOMITING, #10 TAB Prov:KINGSLEY CASEY PA-C 07/05/18 Vits #93-Iron Fum-FA ( Formula) 1 Each Tablet, 1 TAB PO DAILY, #30 TAB Prov:KINGSLEY CASEYC 07/05/18 Cephalexin* (Keflex*) 500 Mg Capsule, 500 MG PO BID for 7 Days, CAP Prov:KINGSLEY CASEY-C 07/05/18 Allergies Allergies: Coded Allergies: No Known Allergy (Unverified , 07/11/18) PMhx/Soc Medical and Surgical Hx: pt denies Medical Hx, pt denies Surgical Hx Hx Alcohol Use: No Hx Substance Use: No Hx Tobacco Use: No Smoking Status: Never smoker Physical Exam Vitals Vital Signs Date Temp Pulse Resp B/P (MAP) Pulse Ox O2 O2 Flow FiO2 Time Delivery Rate 07/11/18 98.0 136 20 111/78 97 13:54 (89) Physical Exam Constitutional:Well-developed. Well-nourished. HEENT:Normocephalic. Atraumatic.Pupils were equal round reactive to light. Very dry mucous membranes.No tonsillar exudates. Neck: No nuchal rigidity. No lymphadenopathy. No posterior cervical spine tenderness or step-offs. Respiratory: Not using accessory muscles of respiration.Lungs were clear to auscultation bilaterally. No rhonchi. No rales. No wheezing. Cardiovascular: Regular rate regular rhythm.No murmurs. No rubs were appreciated.S1, S2 normal. Distal pulses are palpable 2+ bilaterally. GI: Abdomen was soft. Gravid uterus. Nontender. Non Distended. No pulsatile abdominal masses or bruits. No rebound. No guarding. Bowel sounds were present and normal. Muscle skeletal: Full range of motion of both the upper and lower extremities bilaterally.Normal muscle tone.No assymetrical calf tenderness or swelling. Skin: No petechia, no purpura. No lesions on the palms or the soles of the feet. No maculopapular rash. NEURO: Patient was alert, awake, orientated x3.No facial droop. Gait observed and normal with no ataxia.Speech had regular rate and rhythm. No focal neurologi nava deficits. PSYCH: Patient made poor eye contact. Spoke in a soft tone. Patient was experiencing auditory hallucinations with no visual or tactile hallucinations. She denied any suicidal homicidal thoughts or ideations. Result Diagram: 07/11/18 1446 07/11/18 1446 Results 24 hrs Laboratory Tests Test 07/11/18 14:46 White Blood Count 12.5 10^3/ul Red Blood Count 4.99 10^6/ul Hemoglobin 12.2 g/dl Hematocrit 37.1 % Mean Corpuscular Volume 74.3 fl Mean Corpuscular Hemoglobin 24.4 pg Mean Corpuscular Hemoglobin Concent 32.9 g/dl Red Cell Distribution Width 16.6 % Platelet Count 275 10^3/UL Mean Platelet Volume 9.7 fl Immature Granulocytes % 0.300 % Neutrophils % 81.4 % Lymphocytes % 11.1 % Monocytes % 6.7 % Eosinophils % 0.3 % Basophils % 0.2 % Nucleated Red Blood Cells % 0.0 /100WBC Immature Granulocytes # 0.040 10^3/ul Neutrophils # 10.2 10^3/ul Lymphocytes # 1.4 10^3/ul Monocytes # 0.8 10^3/ul Eosinophils # 0.0 10^3/ul Basophils # 0.0 10^3/ul Nucleated Red Blood Cells # 0.0 10^3/ul Prothrombin Time 17.9 Sec Prothrombin Time Ratio 1.4 INR International Normalized Ratio 1.47 Activated Partial Thromboplast Time 28.1 Sec Urine Color MYRON Urine Clarity CLOUDY Urine pH 6.0 Urine Specific [place] 1.021 Urine Ketones 2+ mg/dL Urine Nitrite NEGATIVE mg/dL Urine Bilirubin NEGATIVE mg/dL Urine Urobilinogen 2+ mg/dL Urine Leukocyte Esterase TRACE Lyla/ul Urine Microscopic RBC 2 /HPF Urine Microscopic WBC 3 /HPF Urine Squamous Epithelial Cells MODERATE /HPF Urine Bacteria FEW /HPF Urine Mucus FEW /HPF Urine Hemoglobin NEGATIVE mg/dL Urine Glucose NEGATIVE mg/dL Urine Total Protein 2+ mg/dl Sodium Level 137 mmol/L Potassium Level 3.2 mmol/L Chloride Level 103 mmol/L Carbon Dioxide Level 19 mmol/L Anion Gap 15 Blood Urea Nitrogen 5 mg/dl Creatinine 0.40 mg/dl Est Glomerular Filtrat Rate mL/min > 60 mL/min Glucose Level 115 mg/dl Calcium Level 9.7 mg/dl Total Bilirubin 0.2 mg/dl Direct Bilirubin 0.00 mg/dl Indirect Bilirubin 0.2 mg/dl Aspartate Amino Transf (AST/SGOT) 73 IU/L Alanine Aminotransferase (ALT/SGPT) 73 IU/L Alkaline Phosphatase 82 IU/L Total Protein 8.4 g/dl Albumin 4.6 g/dl Globulin 3.80 g/dl Albumin/Globulin Ratio 1.21 Salicylates Level < 1.0 mg/dl Urine Opiates Screen Negative Acetaminophen Level < 10.0 ug/ml Urine Barbiturates Negative Urine Amphetamines Screen Negative Urine Benzodiazepines Screen Negative Urine Cocaine Screen Negative Urine Cannabinoids Negative Ethyl Alcohol Level < 10.0 mg/dl Current Medications Medications Dose Sig/Vera Start Time Status Last (Trade) Ordered Route PRN Stop Time Admin Dose Reason Admin Sodium 1,000 ml @ Q1H STAT 07/11/18 DC 07/11/18 Chloride 1,000 mls/hr IV 15:06 07/11/18 15:40 16:05 Ondansetron 4 mg ONCE STAT 07/11/18 DC 07/11/18 HCl (Zofran IV 15:06 07/11/18 15:40 Inj) 15:07 Sodium 1,000 ml @ Q1H STAT 07/11/18 DC 07/11/18 Chloride 1,000 mls/hr IV 18:00 07/11/18 18:21 18:59 Olanzapine 2.5 mg ONCE ONCE 07/11/18 DC 07/11/18 (Zyprexa) PO 18:00 07/11/18 18:21 18:01 Procedures/MDM This is a 22-year-old female that presented to the emergency department in second trimester . She had no evidence of hyperemesis gravidarum I was concerned with the patient undergoing depression during . Therefore felt it was necessary to obtain a telemetry psych evaluation hours after she was medically cleared by myself as there is no evidence of severe electrolyte abnormalities, preeclampsia, threatened miscarriage. The patient had an ultrasound that was ordered and reviewed by myself the radiologist indicate a single live intrauterine with no evidence of a claims he appear she received IV fluids and Zofran. After speaking with the telemetry psychiatrist she did feel that the patient met criteria for hold as she was gravely disabled and unable to care for herself at this time in her . The telemetry psychiatrist suggested administering 2.5 mg of Zyprexa which I provided the patient. Departure Diagnosis: Primary Impression: Depression Depression Type: unspecified Qualified Codes: F32.9 - Major depressive di sorder, single episode, unspecified Additional Impression: Second trimester Condition: Serious CAIN ESCOBEDO MD Jul 11, 2018 19:11
[2018-07-12] MEDS ORDERED: ONDANSETRON (ODT) 4 MG TAB ODT STA (09:21)
--- NOTE | 2018-07-12 10:40 | QN ---
Documentation Comment Observation Note: Time: 4 hours Family Hx: Negative for diabetes Evaluation: Multiple exams showed improving symptoms and no evidence of clinical decompensation. NELL CHARLES MD Jul 12, 2018 10:40
[2018-07-12] MEDS: OLANZAPINE (ODT) 5 MG TAB ODT SCH ×2 (11:21→21:00)
--- NOTE | 2018-07-12 15:51 | PSY ---
Date/Time of Note Date/Time of Note DATE: 07/12/18 TIME: 15:46 Psychiatric Subjective Eval Consent Pt consented to telemedicine: Yes Subjective Evaluation Patient location: emergency Chief Complaint: Patient brought by mother who is concerned about her depression Reason for consult: depression History of present illness 22 yo female, a mother of 2, 15 weeks , BIB her family due to refusing to eat for 15 weeks. Pt was seen by Dr Padilla and told her she is not eating out of fear of vomiting; she also states she wants to keep the baby but feels like she has to harm the baby by not eating. Pt was seen with her mother and at bedtime.PT says she has been eating while in ED. I reviewed RN quan whiting - pt refused food and water. Pt denies to me si or hi,denies depression but she has very flat and guarded affect, soft voice. Past psychiatric history denies Hospitalization: no Medical history Problems Medical Problems: (1) Depression Status: Acute (2) Hyperemesis Status: Acute (3) Nausea and vomiting Status: Acute (4) Pyuria Status: Acute (5) Second trimester Status: Acute (6) Vomiting Status: Acute Allergies: Coded Allergies: No Known Allergy (Unverified , 07/11/18) Substance Abuse Substance use: No known substance abuse Social History Marital status: Level of education: hs DPA/Conservatorship: No Occupation/Correction: no Psychiatric Objective Eval Mental Status Examination: Appearance: Groomed Eye Contact: Good Psychomotor Activity: Normal Behavior: Cooperative, Guarded Speech: Soft, Monotone AFFECT: Depressed Mood: Depressed Though Process: Illogical Thought Content: Normal Suicidal: No Homicidal: No On 72 hour hold: Yes Orientation: x4 Cognition: Alert Insight: Impared Judgement: Impared Laboratory Results Laboratory Tests Test 07/11/18 14:46 White Blood Count 12.5 10^3/ul Red Blood Count 4.99 10^6/ul Hemoglobin 12.2 g/dl Hematocrit 37.1 % Mean Corpuscular Volume 74.3 fl Mean Corpuscular Hemoglobin 24.4 pg Mean Corpuscular Hemoglobin Concent 32.9 g/dl Red Cell Distribution Width 16.6 % Platelet Count 275 10^3/UL Mean Platelet Volume 9.7 fl Immature Granulocytes % 0.300 % Neutrophils % 81.4 % Lymphocytes % 11.1 % Monocytes % 6.7 % Eosinophils % 0.3 % Basophils % 0.2 % Nucleated Red Blood Cells % 0.0 /100WBC Immature Granulocytes # 0.040 10^3/ul Neutrophils # 10.2 10^3/ul Lymphocytes # 1.4 10^3/ul Monocytes # 0.8 10^3/ul Eosinophils # 0.0 10^3/ul Basophils # 0.0 10^3/ul Nucleated Red Blood Cells # 0.0 10^3/ul Prothrombin Time 17.9 Sec Prothrombin Time Ratio 1.4 INR International Normalized Ratio 1.47 Activated Partial Thromboplast Time 28.1 Sec Urine Color MYRON Urine Clarity CLOUDY Urine pH 6.0 Urine Specific [place] 1.021 Urine Ketones 2+ mg/dL Urine Nitrite NEGATIVE mg/dL Urine Bilirubin NEGATIVE mg/dL Urine Urobilinogen 2+ mg/dL Urine Leukocyte Esterase TRACE Lyla/ul Urine Microscopic RBC 2 /HPF Urine Microscopic WBC 3 /HPF Urine Squamous Epithelial Cells MODERATE /HPF Urine Bacteria FEW /HPF Urine Mucus FEW /HPF Urine Hemoglobin NEGATIVE mg/dL Urine Glucose NEGATIVE mg/dL Urine Total Protein 2+ mg/dl Sodium Level 137 mmol/L Potassium Level 3.2 mmol/L Chloride Level 103 mmol/L Carbon Dioxide Level 19 mmol/L Anion Gap 15 Blood Urea Nitrogen 5 mg/dl Creatinine 0.40 mg/dl Est Glomerular Filtrat Rate mL/min > 60 mL/min Glucose Level 115 mg/dl Calcium Level 9.7 mg/dl Total Bilirubin 0.2 mg/dl Direct Bilirubin 0.00 mg/dl Indirect Bilirubin 0.2 mg/dl Aspartate Amino Transf (AST/SGOT) 73 IU/L Alanine Aminotransferase (ALT/SGPT) 73 IU/L Alkaline Phosphatase 82 IU/L Total Protein 8.4 g/dl Albumin 4.6 g/dl Globulin 3.80 g/dl Albumin/Globulin Ratio 1.21 Salicylates Level < 1.0 mg/dl Urine Opiates Screen Negative Acetaminophen Level < 10.0 ug/ml Urine Barbiturates Negative Urine Amphetamines Screen Negative Urine Benzodiazepines Screen Negative Urine Cocaine Screen Negative Urine Cannabinoids Negative Ethyl Alcohol Level < 10.0 mg/dl Assessment and Plan Assessment/Diagnosis Diagnosis Unspecified psychosis, rule out. Unspecified depressive disorder. Recommendation/Plan Medication Management defer to inpt Multiple antipsychotics: No Discharge Disposition: Psychiatric inpatient Legal Status: Continue involuntary hold Other d/w Dr Belcher, per nursing notes, pt has been refusing food and water; pt states, she has been eating. Pt still meets GD criteria. PLease monitor her food and water intake. Transfer to [facility] psych. GUICHO VELASQUEZ MD Jul 12, 2018 15:51
--- NOTE | 2018-07-12 18:10 | PSY ---
Date/Time of Note Date/Time of Note DATE: 07/12/18 TIME: 20:59 Psychiatric Subjective Eval Consent Pt consented to telemedicine: Yes Subjective Evaluation Patient location: emergency Chief Complaint: Patient brought by mother who is concerned about her depression Reason for consult: depression History of present illness HPI: 22 yo female with no formal psych hx, per two previous notes from Drs. Padilla and Mary, pt is . The notes report that pt has been hearing voices (unclear if AH or her own voices) not to eat in order to hurt the child, and that she "has" to hurt the child. Per notes, has been very depressed for 2 weeks, not eating or sleeping, per notes. spoke with pt. She completely denies the report above. Denies depression, denies voices or that she is not eating in any way related to her fetus. Reports she wants to keep the child. Denies any psych hx. Reports the only reason she was not eating was due to nausea. She reports that the information in the previous 2 notes was completely made up. Past Psych Hx: denies PMHx: denies nkda Meds: antibiotics MSE: casually groomed, normal speech with decreased prosody, appears very depressed though denies, flat affect, organized, denies delusions or avh or si/hi, impaired reliability Imp: 22 yo female. Appears depressed and per previous notes was not eating in order to harm child, though pt fully denies this Recommend [id number] for further eval as, given that pt appears depressed and per notes was not functioning and may have been hearing voices telling her not to eat and potentially to not to eat to harm fetus, there is not enough evidence to suggest pt is not gravely disabled, consider speaking with other family members and her OB who may be able to provide additional information on this consider ethics consult given complicated nature of case for agitation consider benadryl 25-50mg po or im for agitation d/w Attending Hospitalization: no Medical history Problems Medical Problems: (1) Depression Status: Acute (2) Hyperemesis Status: Acute (3) Nausea and vomiting Status: Acute (4) Pyuria Status: Acute (5) Second trimester Status: Acute (6) Vomiting Status: Acute Allergies: Coded Allergies: No Known Allergy (Unverified , 07/11/18) Social History Marital status: Level of education: hs DPA/Conservatorship: No Occupation/Fdc: no Psychiatric Objective Eval Mental Status Examination: Laboratory Results Laboratory Tests Test 07/11/18 14:46 White Blood Count 12.5 10^3/ul Red Blood Count 4.99 10^6/ul Hemoglobin 12.2 g/dl Hematocrit 37.1 % Mean Corpuscular Volume 74.3 fl Mean Corpuscular Hemoglobin 24.4 pg Mean Corpuscular Hemoglobin Concent 32.9 g/dl Red Cell Distribution Width 16.6 % Platelet Count 275 10^3/UL Mean Platelet Volume 9.7 fl Immature Granulocytes % 0.300 % Neutrophils % 81.4 % Lymphocytes % 11.1 % Monocytes % 6.7 % Eosinophils % 0.3 % Basophils % 0.2 % Nucleated Red Blood Cells % 0.0 /100WBC Immature Granulocytes # 0.040 10^3/ul Neutrophils # 10.2 10^3/ul Lymphocytes # 1.4 10^3/ul Monocytes # 0.8 10^3/ul Eosinophils # 0.0 10^3/ul Basophils # 0.0 10^3/ul Nucleated Red Blood Cells # 0.0 10^3/ul Prothrombin Time 17.9 Sec Prothrombin Time Ratio 1.4 INR International Normalized Ratio 1.47 Activated Partial Thromboplast Time 28.1 Sec Urine Color MYRON Urine Clarity CLOUDY Urine pH 6.0 Urine Specific [place] 1.021 Urine Ketones 2+ mg/dL Urine Nitrite NEGATIVE mg/dL Urine Bilirubin NEGATIVE mg/dL Urine Urobilinogen 2+ mg/dL Urine Leukocyte Esterase TRACE Lyla/ul Urine Microscopic RBC 2 /HPF Urine Microscopic WBC 3 /HPF Urine Squamous Epithelial Cells MODERATE /HPF Urine Bacteria FEW /HPF Urine Mucus FEW /HPF Urine Hemoglobin NEGATIVE mg/dL Urine Glucose NEGATIVE mg/dL Urine Total Protein 2+ mg/dl Sodium Level 137 mmol/L Potassium Level 3.2 mmol/L Chloride Level 103 mmol/L Carbon Dioxide Level 19 mmol/L Anion Gap 15 Blood Urea Nitrogen 5 mg/dl Creatinine 0.40 mg/dl Est Glomerular Filtrat Rate mL/min > 60 mL/min Glucose Level 115 mg/dl Calcium Level 9.7 mg/dl Total Bilirubin 0.2 mg/dl Direct Bilirubin 0.00 mg/dl Indirect Bilirubin 0.2 mg/dl Aspartate Amino Transf (AST/SGOT) 73 IU/L Alanine Aminotransferase (ALT/SGPT) 73 IU/L Alkaline Phosphatase 82 IU/L Total Protein 8.4 g/dl Albumin 4.6 g/dl Globulin 3.80 g/dl Albumin/Globulin Ratio 1.21 Salicylates Level < 1.0 mg/dl Urine Opiates Screen Negative Acetaminophen Level < 10.0 ug/ml Urine Barbiturates Negative Urine Amphetamines Screen Negative Urine Benzodiazepines Screen Negative Urine Cocaine Screen Negative Urine Cannabinoids Negative Ethyl Alcohol Level < 10.0 mg/dl Assessment and Plan Recommendation/Plan Multiple antipsychotics: No Discharge Disposition: Other (Other) Legal Status: Continue involuntary hold AMARILYS MURPHY Jul 12, 2018 18:09
[2018-07-13] MEDS ORDERED: ONDANSETRON (ODT) 4 MG TAB ODT STA (06:14)
[2018-07-13] MEDS ORDERED: ONDA4TAB14 PO (08:32)
[2018-07-13] MEDS: OLANZAPINE (ODT) 5 MG TAB ODT SCH (08:35)
[2018-07-13 09:20] VITALS: BP 113/79; PULSE 102; RESP 18
--- NOTE | 2018-07-13 09:47 | PSY ---
Date/Time of Note Date/Time of Note DATE: 07/13/18 TIME: 08:22 Psychiatric Subjective Eval Consent Pt consented to telemedicine: Yes Subjective Evaluation Patient location: emergency Chief Complaint: Patient brought by mother who is concerned about her depression Reason for consult: depression Hospitalization: no Medical history Problems Medical Problems: (1) Depression Status: Acute (2) Hyperemesis Status: Acute (3) Nausea and vomiting Status: Acute (4) Pyuria Status: Acute (5) Second trimester Status: Acute (6) Vomiting Status: Acute Allergies: Coded Allergies: No Known Allergy (Unverified , 07/11/18) Social History Marital status: Level of education: DPA/Conservatorship: No Occupation/Alf: no Psychiatric Objective Eval Mental Status Examination: Laboratory Results Laboratory Tests Test 07/11/18 14:46 White Blood Count 12.5 10^3/ul Red Blood Count 4.99 10^6/ul Hemoglobin 12.2 g/dl Hematocrit 37.1 % Mean Corpuscular Volume 74.3 fl Mean Corpuscular Hemoglobin 24.4 pg Mean Corpuscular Hemoglobin Concent 32.9 g/dl Red Cell Distribution Width 16.6 % Platelet Count 275 10^3/UL Mean Platelet Volume 9.7 fl Immature Granulocytes % 0.300 % Neutrophils % 81.4 % Lymphocytes % 11.1 % Monocytes % 6.7 % Eosinophils % 0.3 % Basophils % 0.2 % Nucleated Red Blood Cells % 0.0 /100WBC Immature Granulocytes # 0.040 10^3/ul Neutrophils # 10.2 10^3/ul Lymphocytes # 1.4 10^3/ul Monocytes # 0.8 10^3/ul Eosinophils # 0.0 10^3/ul Basophils # 0.0 10^3/ul Nucleated Red Blood Cells # 0.0 10^3/ul Prothrombin Time 17.9 Sec Prothrombin Time Ratio 1.4 INR International Normalized Ratio 1.47 Activated Partial Thromboplast Time 28.1 Sec Urine Color MYRON Urine Clarity CLOUDY Urine pH 6.0 Urine Specific [place] 1.021 Urine Ketones 2+ mg/dL Urine Nitrite NEGATIVE mg/dL Urine Bilirubin NEGATIVE mg/dL Urine Urobilinogen 2+ mg/dL Urine Leukocyte Esterase TRACE Lyla/ul Urine Microscopic RBC 2 /HPF Urine Microscopic WBC 3 /HPF Urine Squamous Epithelial Cells MODERATE /HPF Urine Bacteria FEW /HPF Urine Mucus FEW /HPF Urine Hemoglobin NEGATIVE mg/dL Urine Glucose NEGATIVE mg/dL Urine Total Protein 2+ mg/dl Sodium Level 137 mmol/L Potassium Level 3.2 mmol/L Chloride Level 103 mmol/L Carbon Dioxide Level 19 mmol/L Anion Gap 15 Blood Urea Nitrogen 5 mg/dl Creatinine 0.40 mg/dl Est Glomerular Filtrat Rate mL/min > 60 mL/min Glucose Level 115 mg/dl Calcium Level 9.7 mg/dl Total Bilirubin 0.2 mg/dl Direct Bilirubin 0.00 mg/dl Indirect Bilirubin 0.2 mg/dl Aspartate Amino Transf (AST/SGOT) 73 IU/L Alanine Aminotransferase (ALT/SGPT) 73 IU/L Alkaline Phosphatase 82 IU/L Total Protein 8.4 g/dl Albumin 4.6 g/dl Globulin 3.80 g/dl Albumin/Globulin Ratio 1.21 Salicylates Level < 1.0 mg/dl Urine Opiates Screen Negative Acetaminophen Level < 10.0 ug/ml Urine Barbiturates Negative Urine Amphetamines Screen Negative Urine Benzodiazepines Screen Negative Urine Cocaine Screen Negative Urine Cannabinoids Negative Ethyl Alcohol Level < 10.0 mg/dl Assessment and Plan Recommendation/Plan Discharge Disposition: Community (home) Legal Status: Release involuntary hold Assessment Additional comments: IDENTIFYING INFORMATION: 22 year old Female patient who is currently located at the hospital and for whom psychiatric consultation was requested. SOURCES OF INFORMATION: The patient who appears to be reliable and the medical records; the nursing staff. , Reagan Bar, was interviewed via the spindle plumber in [place]. php mysql web developer, assisted with the interviewer, #[id number]. CHIEF COMPLAINT: "I ate yesterday". HISTORY OF PRESENT ILLNESS: The patient was interviewed via telemedicine in the presence of and under the supervision of nursing staff of the hospital. The consent to conducting this interview via telemedicine was obtained by the nursing staff at the hospital. KEIKO Adams reports that the patient still had not eaten breakfast today, c/o nausea. Pt had some food yesterday however. Per 5150 hold; per ppw, the pt was having AH or obsessive thoughts telling her to not eat which would harm the baby. Pt does not feel safe. Dr. Cao reports that the pt was placed on a 5150 hold. The patient denies having been depressed, having anhedonia, insomnia, low appetite. she reports that she has had a lot of nausea and has not been able to eat, but does get hungry. She reports that she never expressed having auditory hallucinations, but rather reported that her mind automatically tells her not to eat because of the nausea even though she knows that she should eat. The patient denies having AH, VH, delusions, SI, insomnia. The patient denies using alcohol heavily or regularly. The patient denies using any other substances. reports that the pt has not been eating much due to nausea. He denies his having any psychiatric illness. he reports that these he was only nausea and vomiting not any type of psychiatric illness. He has no idea how this was interpreted as the patient suffering from a psychiatric illness. He reports that his is very responsible and functional, and takes care of their 2 children with no problems. He reports that he has no safety concerns regarding his taking care of the children. denies the pt having SI, HI, past psychiatric hospitalizations, medication trials, depressed mood. In terms of past psychiatric history, the patient reports having a history of no past psychiatric hospitalizations. The patient reports having a history of no past suicide attempts. Past medication trials: none. The patient denies ever having a history of AH, delusions, persistent or serious depression or anhedonia, manic or hypomanic episodes. The patient was evaluated by [address] Padilla, Dr. Hernandez and Dr. Cooper. the patient reported possibly having voices telling her to not eat to potentially harm the fetus. PAST MEDICAL HISTORY: none. HOME MEDICATIONS: antibiotic, MVT. CURRENT MEDICATIONS: zyprexa 2.5 mg po bid. ALLERGIES TO MEDICATIONS: NKDA. LABORATORY TESTS: CMP with potassium 3.2, AST 73, ALT 73, CBC with MCV of 74.3, MCH 24.4, UDS negative, no alcohol detected. SOCIAL HISTORY: lives with , has 2 kids, [id number]-po-ipyo mom; graduated from high school; no access to firearms. FAMILY HISTORY: Noncontributory for major depressive disorder, bipolar disorder, schizophrenia. REVIEW OF SYSTEMS: Constitutional (e.g., fever, weight loss): negative; Eyes, Ears, Nose, Mouth, Throat: negative; Cardiovascular: negative; Respiratory: negative; Gastrointestinal: negative; Genitourinary: negative; Musculoskeletal: negative; Integumentary (skin and/or breast): negative; Neurological: negative; Psychiatric: as per HPI; Endocrine: negative; Hematologic/Lymphatic: negative; Allergic/Immunologic: negative. MENTAL STATUS EXAMINATION: General Appearance and Behavior: Calm, cooperative with the interview, pleasant with the current interviewer, makes good eye contact, well-groomed, no abnormal movements noted, somewhat ill-appearing due to nausea. Speech: Regular rate, regular rhythm, normal latency, normal volume, normal amount. Flow of thought: sequential, logical, goal-directed. Content of thought: no auditory hallucinations, no visual hallucinations, no delusions, no suicidal ideation; the patient is future-oriented, no homicidal ideation. Mood: "ok" Affect: mildly dysthymic, reactive, somewhat restricted range. Attention: normal based on the interview. Insight: good. Judgment: good. Memory: normal based on the interview. Sensorium: alert and oriented to person, place and date. ASSESSMENT: The patient's presentation and history are consistent with the diagnosis of unspecified mood disorder. the patient is not expressing psychotic symptoms at this time. However Zyprexa 2.5 mg by mouth twice a day was started approximately one day ago. the patient does not appear to be in a major depressive episode at this time. No evidence of psychosis, sarina, hypomania on exam. the patient was observed for several days while at the emergency room. the patient has been eating somewhat, even though she has not been eating a lot due to nausea. The patient has not been paranoid, has not expressed any delusions, And adamantly denies having any auditory hallucinations. Her with whom she lives also denies the patient having psychotic symptoms at any point. PLAN: - Medication management: Would continue Zyprexa 2.5 mg by mouth twice a day. Will defer to the patient's future outpatient psychiatrist about the possibility of discontinuing this medication. - Labs: No other laboratory tests are needed at this time. - Psychotherapy: Provided supportive psychotherapy and psychoeducation. - Disposition: The patient is appropriate for the outpatient level of care at this time from a psychiatric perspective. The patient is not an imminent danger to self or others. The patient is motivated for outpatient treatment. The patient agrees to be compliant with outpatient follow-up appointments and pharmacotherapy as indicated. Would recommend that the patient follows up with a psychiatrist. Resources for outpatient follow-up will be provided by the hospital staff. The patient's risk for completed suicide is low to moderate in comparison to the general population. Risk factors include age, possible mood disorder. Protective factors include race, gender, absence of schizophrenia, bipolar di sorder, anxiety disorder, personality disorder, no access to firearms, no history of past suicide attempts, no major chronic medical problems. The patient's risk for completed suicide cannot be modified more effectively with inpatient admission at this time. The patient is not an imminent danger to self or others at this time and does not meet the legal criteria for involuntary admission. Risks, benefits, alternatives were discussed and the patient provided informed consent to proceed with the above plan. The patient's wants to take his home, has no safety concerns, and adamantly reports that his does not suffer from a psychiatric illness but rather from nausea due to . Will recommend discontinuing 5150 hold as the patient is unlikely to benefit from inpatient admission to psychiatry at this time. Discussed about the above plan with Dr. Cao. MILAGROS CRUZ MD Jul 13, 2018 08:32
== END 2018-07-13 09:21 | disposition home or self-care (01) ==
LOC: E/R 13:50
DX: O99.342 Other mental disorders complicating pregnancy, second trimester (principal); R40.2142 Coma scale, eyes open, spontaneous, at arrival to emergency department; R40.2362 Coma scale, best motor response, obeys commands, at arrival to emergency department; R40.2252 Coma scale, best verbal response, oriented, at arrival to emergency department; F32.9 Major depressive disorder, single episode, unspecified; Z3A.15 15 weeks gestation of pregnancy
CPT/HCPCS: 76805; 80053; 80306; 80307; 81001; 85025; 85610; 85730; 86900; 86901; 96361; 96374; J7030; Z7502; Z7610

== ENCOUNTER 2018-11-26 11:51 | Outpatient (CLI) | payer OTHER ==
[~2018-11-26] VITALS: Ht 154.9 cm; Wt 53.5 kg
[~2018-11-26 11:51] MED LIST changes: -CEPH-443 PO; -CEPH500C PO; -METO10TA92 PO; +ONDA4TAB14 PO; -PREN-39 PO; -PREN-6 PO
[2018-11-26 12:35] VITALS: Ht 154.9 cm; Wt 53.5 kg
[2018-11-26 12:36] VITALS: BP 96/63; PULSE 93; RESP 18
--- NOTE | 2018-11-26 12:42 | PREAC ---
Date/Time of Note Date/Time of Note DATE: 11/26/18 TIME: 12:40 Anesthesia Eval and Record Evaluation Time Pre-Procedure Interview DATE: 11/26/18 TIME: 12:40 Age 22 Sex female NPO: 8 hrs Preoperative diagnosis IUP Planned procedure L&D Epidural Past Medical History Past Medical History: None Surgery & Anesthesia Issues No known issue Meds Anticoagulation: No Beta Mayuri within 24 hr: No Reason Beta Mayuri not given: Pt. not on B-Mayuri Active Scripts Ondansetron (Ondansetron Odt) 4 Mg Tab.rapdis, 4 MG PO Q6H PRN for NAUSEA AND/OR VOMITING, #30 TAB Prov:NELL CHARLES MD 07/13/18 Meds reviewed: Yes Allergies Coded Allergies: No Known Allergy (Unverified , 07/11/18) Allergies Reviewed: Yes Labs/Studies Labs Reviewed: Reviewed by anesthesiologist Result Diagram: 11/26/18 1209 Laboratory Tests 11/26/18 12:09 test: Positive Studies: ECG Pre-procedure Exam Last vitals Vital Signs Date Temp Pulse Resp B/P (MAP) Pulse Ox O2 O2 Flow FiO2 Time Delivery Rate 11/26/18 98.3 93 18 96/63 (74) 12:36 Airway: Adequate mouth opening, Adequate thyromental dist Mallampati: Mallampati II Teeth: Normal Lung: Normal Heart: Normal ASA Physical Status ASA physical status: 2 Emergency: None Planned Anesthetic Neuraxial: Epidural Planned Pain Management Epidural Pre-operative Attestations Prior to commencing anesthesia and surgery, the patient was re-evaluated, there was verification of: *The patient's identity *The results of appropriate recent lab work and preoperative vital signs *The above evaluation not changing prior to induction *Anesthetic plan, risk benefits, alternative and complications discussed with patient/family; questions answered; patient/family understands, accepts and wishes to proceed. VICENTE PHILLIPS MD November 26, 2018 12:42
[2018-11-26] MEDS ORDERED: DIPHENHYDRAMINE 50 MG INJ IV PRN (13:00)
[2018-11-26] MEDS ORDERED: ONDANSETRON 4 MG INJ IV PRN (13:00)
[2018-11-26] MEDS ORDERED: NALOXONE (0.4 MG/ML) INJ IV PRN (13:00)
[2018-11-26] MEDS ORDERED: FENTAnyl 2MCG/ML-ROPIV 0.2% 100 ML BAG EPI SCH (13:00)
--- NOTE | 2018-11-26 16:19 | EN ---
Date/Time of Note Date/Time of Note DATE: 11/26/18 TIME: 16:12 Event Note Medicine Medicine Event Note Hematology consultation dictated-- 22 y/o in 35th week of third . WBC 8,100 (ANC 5,300), Hgb 6.7, Hct 25.5, MCV 65.9, MCH 17.3, MCHC 26.3, RDW 19.3, Plt 286,000. Pt has iron deficiency. Had similar findings with previous 2 . Required RBC transfusion with 2nd . Pt admits to heavy menses. Was prescribed oral iron but did not take it due to GI intolerance. Based on pt weight and Hgb she will require 1650 mg of elemental iron to replete her iron stores. Will order ferric gluconate but can only receive 125 mg daily and she is not willing to stay. Thank you, MD JUAN M Zepeda STANLEY H MD November 26, 2018 16:19
[2018-11-26] MEDS ORDERED: SOD FERRIC GLUC COMPLX 125 MG in SOD CHLORIDE 0.9% 100 ML IVPB SCH (17:00)
--- NOTE | 2018-11-26 17:10 | CONS ---
DATE OF ADMISSION: 11/26/2018 DATE OF CONSULTATION: 11/26/2018 TYPE OF CONSULTATION: Hematology. PHYSICIAN REQUESTING CONSULTATION: Maury Domingo MD REASON FOR CONSULTATION: Anemia. Dear Dr. Domingo: Thank you very much for asking me to see this very pleasant patient in hematologic consultation. As you know, Ms. Cabrera is a 22-year-old female who is 3, para 2, AB 0. The patient is now on the 35-week of her third . The patient is admitted now to [facility] with increasing weakness and fatigue. Th e patient has a white count of 8100, RBC 3.87 million, hemoglobin 6.7, hematocrit 25.5, MCV 65.9, MCH 17.3, MCHC 26.3, RDW 19.3 and platelet count 268,000. The patient has had a history of iron deficiency anemia associated with her previous 2 pregnancies. The patient actually did require red blood cell transfusion with the second . The patient does complain of increasing weakness with dyspnea on exertion and some orthostatic change s. She denies hematemesis, melena or hematochezia. Has had nausea and vomiting with this . The patient states that her menstrual periods have always been heavy. She again has not had any GI s ymptoms and no melena or hematochezia. The patient was given oral iron supplements by Dr. Domingo and instructed to take it 3 times a day. The patient states she could not tolerate it even 1 per day because of nausea and vomiting. PAST MEDICAL HISTORY: Unremarkable other than the anemia that is associated with previous pregnancie s. Patient has no history of hypertension, heart disease, diabetes, renal or hepatic disease. The patient's family history is unremarkable. There is no known family history of anemia, or other h ematologic abnormalities. 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 She has not knowingly have been exposed to industrial toxins or ionizing radiation. States she does not smoke or use [employer] sales products and does not consume alcohol. PHYSICAL EXAMINATION: GENERAL: At this time reveals a well-developed, well-nourished female who is in no acute distress. VITAL SIGNS: Temperature 98.3 orally, pulse 93 per minute and regular, respirations 18, blood pressu re 96/63. SKIN: Pale. No ecchymosis, no petechiae or rashes. HEENT: Normocephalic. No evidence of trauma. Pupils equal, round, react to light and accommodation . Sclerae nonicteric. Oral mucosa is moist without lesions. Conjunctivae and oral mucosa are pale. NECK: Supple, no jugular venous distention or thyroid enlargement. CHEST: Clear to auscultation and percussion. No rhonchi, wheezes, rales or rubs. NODES: No palpable adenopathy. HEART: Regular sinus rhythm, no S3, S4 or murmurs. ABDOMEN: Distended and consistent with a 35-week . Bowel sounds are active. EXTREMITIES: Good range of motion, no clubbing, edema or cyanosis. No palpable cords or Homans sign . NEUROLOGIC: Normal. This patient has definite iron deficiency as a cause for her anemia. This is likely due to heavy men strual periods. The patient has been given oral iron supplementation but has not taken it as directed because of GI i ntolerance. Based on the patient's weight and hemoglobin on admission, it has been calculated that she requires 1 650 mg of elemental iron in order to replete her iron stores. I have requested that the patient receive ferric gluconate 125 mg daily for at least 3 doses. The pa tammi unfortunately is very reluctant to stay in the hospital. Perhaps arrangements could be made as an outpatient for her to receive the iron infusions. I have taken the liberty of requesting iron, iron binding capacity, and a ferritin as well as a hapto globin. Once again, thank you very much for the opportunity of participating in the medical care of this very pleasant patient. I will be happy to follow this patient with you and assist in her hematologic jaelyn luation and follow up as necessary. Dictated By: DOYLE MCGOWAN MD SR/NTS Conf#: [id number] DID#: [id number]
[2018-11-26] MEDS ORDERED: LACTATED RINGER'S 1,000 ML IV SCH (18:30)
--- NOTE | 2018-11-26 20:14 | HP ---
Date/Time of Note Date/Time of Note DATE: 11/26/18 TIME: 20:11 OB - History Hx of Present Chief Complaint: severe anemia Estimated Due Date: Dec 28, 2018 : 3 Para: 2 Spontaneous : 0 Therapeutic : 0 Care: Limited Care Ultrasounds: Normal mid trimester US Obstetrical Complications: None Medical Complications: Other (iron defeciency anemia) Past Family/Social History * Past Medical, Surgical, Family and Obstetric Histories reviewed from chart. OB Admission Exam Vital Signs Vital Signs Vital Signs Date Temp Pulse Resp B/P (MAP) Pulse Ox O2 O2 Flow FiO2 Time Delivery Rate 11/26/18 98.3 93 18 96/63 (74) 12:36 Physical Exam HEENT: WNL Heart: Rhythm Normal Lungs: Clear, Equal Abdomen: WNL Extremities: Normal Reflexes: Normal Cervical Dilatation: None Heart Rate: 120's Accelerations: Accelerations Present Decelerations: No Decelerations Varibility: Moderate Last 72 hours Lab Results CBC & BMP 11/26/18 12:09 OB Assessment/Plan Reason for admission: other Other Assessment: Severe anemia Plan: Other Other plan: Hematology consult Admit IV iron Patient will return daily for IV iron MARCIAL GALLARDO MD November 26, 2018 20:14
[2018-11-26] MEDS ORDERED: PREN-99 PO (20:51)
--- NOTE | 2018-11-27 07:25 | TRIAGE ---
OB Triage Datetime Report Generated by CPN: 11/27/2018 07:24 Datetime: 11/26/2018 19:58 Vaginal Exam Dilatation (cms): 0.0 Effacement (%): 0 Station: -3 Exam By: dr. delshad Membrane Status: Intact Datetime: 11/26/2018 19:20 Monitor Mode: External Monitor Mode: External US Datetime: 11/26/2018 19:19 Pain Assessment Pain Scale: 0 Pain Presence: None/Denies Pain Type: N/A Datetime: 11/26/2018 18:00 Labor Evaluation Frequency: Occasional Quality: Mild Resting Tone [place]: Relaxed Resting Tone IUP (mmHg): Heart Rate FHR Baseline Rate: 125 Monitor Mode: External US Variability: Moderate 6-25 bpm Accelerations: 15X15 Decelerations: None Category: Category I Datetime: 11/26/2018 17:27 Labor Evaluation Frequency: 0 Monitor Mode: External Pattern: Normal: <= 5 Contractions in 10 Minutes Resting Tone [place]: Relaxed Heart Rate FHR Baseline Rate: 135 Monitor Mode: External US Variability: Moderate 6-25 bpm Accelerations: 10X10 Decelerations: None Category: Category I Pain Assessment Pain Scale: 0 Pain Presence: None/Denies Pain Type: N/A Pain Goal: 3 Pain Relief Measures: Comfort Measures Datetime: 11/26/2018 16:30 Labor Evaluation Frequency: 0 Monitor Mode: External Pattern: Normal: <= 5 Contractions in 10 Minutes Resting Tone [place]: Relaxed Heart Rate FHR Baseline Rate: 140 Monitor Mode: External US Variability: Moderate 6-25 bpm Accelerations: 10X10 Decelerations: None Category: Category I Pain Assessment Pain Scale: 0 Pain Presence: None/Denies Pain Type: N/A Pain Goal: 3 Pain Relief Measures: Comfort Measures Datetime: 11/26/2018 16:01 Stage of : OB Triage Datetime: 11/26/2018 15:31 Labor Evaluation Frequency: 2-5 Monitor Mode: External Duration (sec)2399: 50-60 Pattern: Normal: <= 5 Contractions in 10 Minutes Resting Tone [place]: Relaxed Heart Rate FHR Baseline Rate: 135 Monitor Mode: External US Variability: Moderate 6-25 bpm Accelerations: 10X10 Decelerations: None Category: Category I Pain Assessment Pain Scale: 0 Pain Presence: None/Denies Pain Type: N/A Pain Goal: 3 Pain Relief Measures: Comfort Measures Datetime: 11/26/2018 14:30 Labor Evaluation Frequency: 2-5 Monitor Mode: External Duration (sec)2399: 50-70 Pattern: Normal: <= 5 Contractions in 10 Minutes Resting Tone [place]: Relaxed Heart Rate FHR Baseline Rate: 140 Monitor Mode: External US Variability: Moderate 6-25 bpm Accelerations: None Decelerations: None Pain Assessment Pain Scale: 0 Pain Presence: None/Denies Pain Type: N/A Pain Goal: 3 Pain Relief Measures: Comfort Measures Datetime: 11/26/2018 13:25 Labor Evaluation Frequency: 2-6 Monitor Mode: External Duration (sec)2399: 40-60 Pattern: Normal: <= 5 Contractions in 10 Minutes Resting Tone [place]: Relaxed Heart Rate FHR Baseline Rate: 135 Monitor Mode: External US Variability: Moderate 6-25 bpm Accelerations: 10X10 Decelerations: None Category: Category I Pain Assessment Pain Scale: 1 Pain Presence: Intermittent Pain Type: Cramping Pain Location: Perineum Pain Goal: 3 Pain Relief Measures: Comfort Measures Datetime: 11/26/2018 13:23 Stage of : OB Triage Datetime: 11/26/2018 13:13 Stage of : OB Triage Datetime: 11/26/2018 12:55 Stage of : OB Triage Datetime: 11/26/2018 12:24 Stage of : OB Triage Assessment Type: Triage Maternal Assessment Level of Consciousness: Fully Conscious DTR's/Clonus: DTRs 2+; No Clonus Headache: Denies Blurred Vision: No Respiratory Effort: Unlabored; Regular Rhythm; Equal Expansion Breath Sounds, Left: Clear and Equal Breath Sounds, Right: Clear and Equal Nausea/Vomiting: Denies RUQ Epigastric Pain: Denies Facial Edema: None Temperature Route: Axillary Fall Risk Assessment History of Falling: (0) No Secondary Diagnosis: (0) No Ambulatory Aid: (0) Bedrest/Nurse Assist IV Therapy: (0) No Gait: (0) Normal/Bedrest/Immobile Mental Status: (0) Oriented to Own Ability Fall Score: 0 Fall Risk Score Definition: No Risk: No action required Labor Evaluation Frequency: APPLIED Monitor Mode: External Monitor Mode: External US Comments: APPLIED Pain Assessment Pain Scale: 0 Pain Presence: None/Denies Pain Type: N/A Pain Goal: 3 Pain Relief Measures: Comfort Measures Datetime: 11/26/2018 12:22 Time of Arrival: 11/26/2018 11:47 EGA: 35.3 Arrived By: Ambulatory Arrived From: Home Chief Complaint: REFERRED FROM OFFICE FOR SEVERE ANEMIA, DENIES BLEEDING, LEAKING OR UC'S Movement: Decreased Contractions: Denies/Absent Rupture of Membranes: Denies Vaginal Bleeding: None Vaginal Discharge: Denies Recent Sexual Intercouse: Denies Abdominal Trauma: Not Applicable Patient Complaints: None Time Provider Notified: 11/27/2018 13:23 Provider Notified: PAULINA Initial Plan: EFM, CBC, EFW, BPP
== END 2018-11-26 21:06 | disposition home or self-care (01) ==
LOC: OBT 11:51 → L-D 11:52 → OBT 21:06
PROVIDERS: ATTEND Obstetrics & Gynecology
DX: O99.013 Anemia complicating pregnancy, third trimester (principal); D64.9 Anemia, unspecified; Z3A.35 35 weeks gestation of pregnancy
CPT/HCPCS: 76816; 76818; 82728; 83010; 83540; 85025; 96365; J2916; J7120; Z7500; Z7610; G0463; J3010

== ENCOUNTER 2018-11-27 07:36 | Outpatient (CLI) | payer OTHER ==
[~2018-11-27] VITALS: Ht 154.9 cm; Wt 52.9 kg
[~2018-11-27 07:36] MED LIST changes: -ONDA4TAB14 PO; +PREN-99 PO
[2018-11-27 07:52] VITALS: BP 93/63; PULSE 94; RESP 18; Ht 154.9 cm; Wt 52.9 kg
[2018-11-27] MEDS ORDERED: SOD FERRIC GLUC COMPLX 125 MG in SOD CHLORIDE 0.9% 100 ML IVPB ONE (08:00)
[2018-11-27] MEDS ORDERED: LACTATED RINGER'S 1,000 ML IV SCH (08:00)
--- NOTE | 2018-11-27 10:33 | TRIAGE ---
OB Triage Datetime Report Generated by CPN: 11/27/2018 10:33 Datetime: 11/27/2018 09:35 Stage of : OB Triage Datetime: 11/27/2018 09:06 Frequency: 0 Monitor Mode: External Pattern: Normal: <= 5 Contractions in 10 Minutes Resting Tone [place]: Relaxed FHR Baseline Rate: 135 Monitor Mode: External US Variability: Moderate 6-25 bpm Accelerations: 10X10 Decelerations: None Category: Category I Pain Scale: 0 Pain Presence: None/Denies Pain Type: N/A Pain Goal: 3 Pain Relief Measures: Comfort Measures Datetime: 11/27/2018 08:18 Stage of : OB Triage Datetime: 11/27/2018 07:57 Stage of : OB Triage Assessment Type: Triage Level of Consciousness: Fully Conscious DTR's/Clonus: DTRs 2+; No Clonus Headache: Denies Blurred Vision: No Respiratory Effort: Unlabored; Regular Rhythm; Equal Expansion Breath Sounds, Left: Clear and Equal Breath Sounds, Right: Clear and Equal Nausea/Vomiting: Denies RUQ Epigastric Pain: Denies Facial Edema: None Temperature Route: Axillary History of Falling: (0) No Secondary Diagnosis: (0) No Ambulatory Aid: (0) Bedrest/Nurse Assist IV Therapy: (0) No Gait: (0) Normal/Bedrest/Immobile Mental Status: (0) Oriented to Own Ability Fall Score: 0 Fall Risk Score Definition: No Risk: No action required Frequency: 0 Monitor Mode: External Pattern: Normal: <= 5 Contractions in 10 Minutes Resting Tone [place]: Relaxed FHR Baseline Rate: 135 Monitor Mode: External US Variability: Moderate 6-25 bpm Accelerations: 10X10 Decelerations: None Category: Category I Pain Scale: 3 Pain Presence: None/Denies Pain Type: N/A Pain Goal: 0 Pain Relief Measures: Comfort Measures Datetime: 11/27/2018 07:56 Time of Arrival: 11/27/2018 07:30 EGA: 35.4 Arrived By: Ambulatory Arrived From: Home Chief Complaint: return for #2 iron infusion Movement: Present Contractions: Denies/Absent Rupture of Membranes: Denies Vaginal Bleeding: None Vaginal Discharge: Denies Recent Sexual Intercouse: Denies Abdominal Trauma: Not Applicable Patient Complaints: None Time Provider Notified: 11/27/2018 08:18 Provider Notified: sher Initial Plan: monitor, iron infusion Datetime: 11/26/2018 19:59 Frequency: 2-3 Monitor Mode: External Duration (sec)2399: 50-120 Quality: Mild Pattern: Normal: <= 5 Contractions in 10 Minutes Resting Tone [place]: Relaxed FHR Baseline Rate: 135 Monitor Mode: External US Variability: Moderate 6-25 bpm Accelerations: 15X15 Decelerations: None Category: Category I
--- NOTE | 2018-11-27 15:44 | PN ---
Triage Information Date/Time Reason for visit: severe anemia Weeks of Gestation 35 weeks /Para Diabetes: none Hypertention: none Objective Vital Signs Date Temp Pulse Resp B/P (MAP) Pulse Ox O2 O2 Flow FiO2 Time Delivery Rate 11/27/18 98.5 94 18 93/63 (73) 07:52 Heart Rate: 120's Heart Rate Comments Reactive Results/Medications Imaging Results BPP 02/10 Disposition: Discharge Assessment/Plan Patient received one dose of IV iron Follow up on 11/28/2018. MARCIAL GALLARDO MD November 27, 2018 15:44
== END 2018-11-27 10:30 | disposition home or self-care (01) ==
LOC: L-D 07:36 → OBT 07:36
PROVIDERS: ATTEND Obstetrics & Gynecology
DX: O99.013 Anemia complicating pregnancy, third trimester (principal); Z3A.35 35 weeks gestation of pregnancy
CPT/HCPCS: 36415; 76818; 96360; 96361; 96372; J2916; J7120; Z7500; Z7610; G0463

== ENCOUNTER 2018-11-28 07:12 | Outpatient (CLI) | payer OTHER ==
[~2018-11-28] VITALS: Ht 154.9 cm; Wt 54.3 kg
[2018-11-28] MEDS ORDERED: SOD CHLORIDE 0.9% 1,000 ML IV SCH (08:00)
[2018-11-28 08:15] VITALS: Ht 154.9 cm; Wt 54.3 kg
[2018-11-28] MEDS ORDERED: SOD FERRIC GLUC COMPLX 125 MG in SOD CHLORIDE 0.9% 100 ML IVPB ONE (09:00)
--- NOTE | 2018-11-28 10:10 | PN ---
Triage Information Date/Time November 28, 2018 Reason for visit: severe anemia Weeks of Gestation 35w 5d /Para 3/2 Diabetes: none Hypertention: none Additional information PMHx: none. PSHx: none. NKDA. Objective 110/70 T=98.4 Heart Rate: 140's Heart Rate Comments Reactive. No decels. Contractions: >10 Minutes Apart Results/Medications Results 24 hrs Laboratory Tests Test 11/28/18 08:17 Urine Color [place] Urine Clarity SLIGHTLY CLOUDY A Urine pH 7.0 Urine Specific [place] 1.014 Urine Ketones 2+ H Urine Nitrite NEGATIVE Urine Bilirubin NEGATIVE Urine Urobilinogen 2+ H Urine Leukocyte Esterase 2+ H Urine Microscopic RBC 29 H Urine Microscopic WBC 10 H Urine Squamous Epithelial Cells MODERATE Urine Bacteria FEW A Urine Mucus FEW A Urine Hemoglobin 1+ H Urine Glucose NEGATIVE Urine Total Protein NEGATIVE Medications Current Medications Sodium Chloride 1,000 ml @ 125 mls/hr Q8H IV Last administered on 11/28/18at 08:21; Admin Dose 125 MLS/HR; Start 11/28/18 at 08:00 Imaging Results BPP 8/8 with an MARNIE 0f 14.9 Disposition: Discharge Assessment/Plan A: IUP at 35w 5d. Severe iron deficiency anemia. P: Iron infusion #3 today, her last one. Urine culture as her U/A is not clean. F/u at the clinic as scheduled. BRITTON YOUNGER MD November 28, 2018 10:10
--- NOTE | 2018-11-28 11:13 | TRIAGE ---
OB Triage Datetime Report Generated by CPN: 11/28/2018 11:13 Datetime: 11/28/2018 11:09 Stage of : OB Triage Datetime: 11/28/2018 11:00 Stage of : OB Triage Level of Consciousness: Fully Conscious DTR's/Clonus: DTRs 1+ Headache: Denies Breath Sounds, Left: Clear and Equal Breath Sounds, Right: Clear and Equal Nausea/Vomiting: Denies RUQ Epigastric Pain: Denies Frequency: OCC Monitor Mode: External Duration (sec)2399: 40-60 Quality: Mild Pattern: Normal: <= 5 Contractions in 10 Minutes Resting Tone [place]: Relaxed FHR Baseline Rate: 135 Monitor Mode: External US Variability: Moderate 6-25 bpm Accelerations: 15X15 Decelerations: None Category: Category I Pain Scale: 0 Pain Presence: None/Denies Pain Type: N/A Pain Goal: 3 Membrane Status: Intact Datetime: 11/28/2018 10:00 Stage of : OB Triage Level of Consciousness: Fully Conscious DTR's/Clonus: DTRs 1+ Headache: Denies Breath Sounds, Left: Clear and Equal Breath Sounds, Right: Clear and Equal Nausea/Vomiting: Denies RUQ Epigastric Pain: Denies Frequency: OCC Monitor Mode: External Duration (sec)2399: 40-60 Quality: Mild Pattern: Normal: <= 5 Contractions in 10 Minutes Resting Tone [place]: Relaxed FHR Baseline Rate: 135 Monitor Mode: External US Variability: Moderate 6-25 bpm Accelerations: 15X15 Decelerations: None Category: Category I Pain Scale: 0 Pain Presence: None/Denies Pain Type: N/A Pain Goal: 3 Membrane Status: Intact Datetime: 11/28/2018 09:00 Stage of : OB Triage Level of Consciousness: Fully Conscious DTR's/Clonus: DTRs 1+ Headache: Denies Breath Sounds, Left: Clear and Equal Breath Sounds, Right: Clear and Equal Nausea/Vomiting: Denies RUQ Epigastric Pain: Denies Frequency: OCC Monitor Mode: External Duration (sec)2399: 40-60 Quality: Mild Pattern: Normal: <= 5 Contractions in 10 Minutes Resting Tone [place]: Relaxed FHR Baseline Rate: 135 Monitor Mode: External US Variability: Moderate 6-25 bpm Accelerations: 15X15 Decelerations: None Category: Category I Pain Scale: 0 Pain Presence: None/Denies Pain Type: N/A Pain Goal: 3 Membrane Status: Intact Datetime: 11/28/2018 08:39 Dilatation (cms): 0.0 Effacement (%): 0 Station: -3 Exam By: REBECCARN Datetime: 11/28/2018 08:19 Membrane Status: Intact Datetime: 11/28/2018 08:00 Stage of : OB Triage Level of Consciousness: Fully Conscious DTR's/Clonus: DTRs 1+ Headache: Denies Breath Sounds, Left: Clear and Equal Breath Sounds, Right: Clear and Equal Nausea/Vomiting: Denies RUQ Epigastric Pain: Denies Frequency: OCC Monitor Mode: External Duration (sec)2399: 50 Quality: Mild Pattern: Normal: <= 5 Contractions in 10 Minutes Resting Tone [place]: Relaxed FHR Baseline Rate: 135 Monitor Mode: External US Variability: Moderate 6-25 bpm Accelerations: 15X15 Decelerations: None Category: Category I Pain Scale: 0 Pain Presence: None/Denies Pain Type: N/A Pain Goal: 3 Membrane Status: Intact Datetime: 11/28/2018 07:44 Stage of : OB Triage Level of Consciousness: Fully Conscious DTR's/Clonus: DTRs 1+ Headache: Denies Blurred Vision: No Respiratory Effort: Unlabored Breath Sounds, Left: Clear and Equal Breath Sounds, Right: Clear and Equal Nausea/Vomiting: Denies RUQ Epigastric Pain: Denies Facial Edema: None Frequency: X1 Monitor Mode: External Duration (sec)2399: 50 Quality: Mild Pattern: Normal: <= 5 Contractions in 10 Minutes Resting Tone [place]: Relaxed FHR Baseline Rate: 135 Monitor Mode: External US Variability: Moderate 6-25 bpm Accelerations: 10X10 Decelerations: None Category: Category I Pain Scale: 0 Pain Presence: None/Denies Pain Type: N/A Pain Goal: 3 Membrane Status: Intact Datetime: 11/28/2018 07:20 Assessment Type: Triage Level of Consciousness: Fully Conscious DTR's/Clonus: DTRs 2+; No Clonus Headache: Denies Blurred Vision: No Respiratory Effort: Unlabored; Regular Rhythm; Equal Expansion Breath Sounds, Left: Clear and Equal Breath Sounds, Right: Clear and Equal Nausea/Vomiting: Denies RUQ Epigastric Pain: Denies Lower Extremities Edema: None Degree: None Upper Extremities Edema: None Degree: None Facial Edema: None History of Falling: (0) No Secondary Diagnosis: (0) No Ambulatory Aid: (0) Bedrest/Nurse Assist IV Therapy: (0) No Gait: (0) Normal/Bedrest/Immobile Mental Status: (0) Oriented to Own Ability Fall Score: 0 Fall Risk Score Definition: No Risk: No action required Datetime: 11/28/2018 07:10 Time of Arrival: 11/28/2018 07:10 EGA: 35.5 Arrived By: Ambulatory Arrived From: Home Chief Complaint: PT CAME IN FOR IRON INFUCION 3RD DOSE AT THIS TIME Movement: Present Contractions: Denies/Absent Rupture of Membranes: Denies Vaginal Discharge: Denies Recent Sexual Intercouse: Denies Abdominal Trauma: Not Applicable Additional Patient Complaints: NONE Time Provider Notified: 11/28/2018 10:57 Provider Notified: PAULINA Initial Plan: IRON INFUCION, NST AND BPP
== END 2018-11-28 11:09 | disposition home or self-care (01) ==
LOC: OBT 07:12 → L-D 07:14 → OBT 11:09
PROVIDERS: ATTEND Obstetrics & Gynecology
DX: O26.893 Other specified pregnancy related conditions, third trimester (principal); D50.9 Iron deficiency anemia, unspecified; Z3A.35 35 weeks gestation of pregnancy
CPT/HCPCS: 36415; 76818; 81001; 87086; 96360; 96361; 96368; J2916; J7030; Z7500; Z7610; G0463

== ENCOUNTER 2018-12-01 09:33 | Outpatient (CLI) | payer OTHER ==
[~2018-12-01] VITALS: Ht 154.9 cm; Wt 54.9 kg
[2018-12-01] MEDS ORDERED: FER325 PO (09:53)
[2018-12-01 09:54] VITALS: BP 97/59; PULSE 109; RESP 18; Ht 154.9 cm; Wt 54.9 kg
--- NOTE | 2018-12-01 11:48 | TRIAGE ---
OB Triage Datetime Report Generated by CPN: 12/01/2018 11:48 Datetime: 12/01/2018 10:08 Stage of : OB Triage Maternal Assessment Level of Consciousness: Fully Conscious Labor Evaluation Frequency: 3UC/HR Monitor Mode: External Duration (sec)2399: 60-100 Quality: Mild Resting Tone [place]: Relaxed Heart Rate FHR Baseline Rate: 140 Monitor Mode: External US Variability: Moderate 6-25 bpm Accelerations: 15X15 Decelerations: None Category: Category I Pain Assessment Pain Scale: 0 Pain Goal: 3 Vaginal Exam Membrane Status: Intact Vaginal Bleeding: None Datetime: 12/01/2018 09:48 Assessment Type: Triage Maternal Assessment Level of Consciousness: Fully Conscious DTR's/Clonus: DTRs 2+; No Clonus Headache: Denies Blurred Vision: No Respiratory Effort: Unlabored; Regular Rhythm; Equal Expansion Breath Sounds, Left: Clear and Equal Breath Sounds, Right: Clear and Equal Nausea/Vomiting: Denies RUQ Epigastric Pain: Denies Lower Extremities Edema: None Degree: None Upper Extremities Edema: None Degree: None Facial Edema: None Fall Risk Assessment History of Falling: (0) No Secondary Diagnosis: (0) No Ambulatory Aid: (0) Bedrest/Nurse Assist IV Therapy: (0) No Gait: (0) Normal/Bedrest/Immobile Mental Status: (0) Oriented to Own Ability Fall Score: 0 Fall Risk Score Definition: No Risk: No action required Datetime: 12/01/2018 09:47 Time of Arrival: 12/01/2018 09:30 EGA: 36.1 Arrived By: Ambulatory Arrived From: Home Chief Complaint: PT. STATES SHE IS HERE FOR F/U NST FOR ANEMIA Movement: Present Contractions: Denies/Absent Rupture of Membranes: Denies Vaginal Bleeding: None Vaginal Discharge: Denies Recent Sexual Intercouse: Denies Abdominal Trauma: Not Applicable Patient Complaints: None Time Provider Notified: 12/01/2018 10:11 Provider Notified: DELSHAD Initial Plan: NST/BPP Datetime: 11/28/2018 07:20 Fall Score: 0 Fall Risk Score Definition: No Risk: No action required Datetime: 11/28/2018 07:10 EGA: 35.5 Datetime: 11/27/2018 07:57 Fall Score: 0 Fall Risk Score Definition: No Risk: No action required Datetime: 11/27/2018 07:56 EGA: 35.4 Datetime: 11/26/2018 12:24 Fall Score: 0 Fall Risk Score Definition: No Risk: No action required Datetime: 11/26/2018 12:22 EGA: 35.3
--- NOTE | 2018-12-11 16:52 | PN ---
Triage Information Date/Time Date of visit 12/01/2018 Reason for visit: severe anemia Weeks of Gestation 36 weeks /Para Diabetes: none Hypertention: none Objective Heart Rate: 120's Heart Rate Comments Reactive Results/Medications Imaging Results [facility] 02/10 Disposition: Discharge Assessment/Plan Continue with Fe supplement. MARCIAL GALLARDO MD Dec 11, 2018 16:52
== END 2018-12-01 11:50 | disposition home or self-care (01) ==
LOC: OBT 09:33 → L-D 09:36 → OBT 11:50
PROVIDERS: ATTEND Obstetrics & Gynecology
DX: O99.013 Anemia complicating pregnancy, third trimester (principal); D64.9 Anemia, unspecified; Z3A.36 36 weeks gestation of pregnancy
CPT/HCPCS: 76818

== ENCOUNTER 2018-12-06 07:36 | Outpatient (CLI) | payer OTHER ==
[~2018-12-06] VITALS: Ht 154.9 cm; Wt 53.3 kg
[~2018-12-06 07:36] MED LIST changes: +FER325 PO
[2018-12-06 07:55] VITALS: Ht 154.9 cm; Wt 53.3 kg
[2018-12-06 07:56] VITALS: BP 101/61; PULSE 80; RESP 19
--- NOTE | 2018-12-06 09:52 | TRIAGE ---
OB Triage Datetime Report Generated by CPN: 12/06/2018 09:51 Datetime: 12/06/2018 09:20 Labor Evaluation Frequency: OCCAS Monitor Mode: External Duration (sec)2399: 50-100 Quality: Mild Pattern: Normal: <= 5 Contractions in 10 Minutes Resting Tone [place]: Relaxed Heart Rate FHR Baseline Rate: 130 Monitor Mode: External US FHR Baseline Changes: No Baseline Change Variability: Moderate 6-25 bpm Accelerations: 15X15 Decelerations: None Category: Category I Datetime: 12/06/2018 08:07 Assessment Type: Triage Maternal Assessment Level of Consciousness: Fully Conscious DTR's/Clonus: DTRs 2+; No Clonus Headache: Denies Blurred Vision: No Respiratory Effort: Unlabored; Regular Rhythm; Equal Expansion Breath Sounds, Left: Clear and Equal Breath Sounds, Right: Clear and Equal Nausea/Vomiting: Denies RUQ Epigastric Pain: Denies Lower Extremities Edema: None Degree: None Upper Extremities Edema: None Degree: None Facial Edema: None Fall Risk Assessment History of Falling: (0) No Secondary Diagnosis: (0) No Ambulatory Aid: (0) Bedrest/Nurse Assist IV Therapy: (0) No Gait: (0) Normal/Bedrest/Immobile Mental Status: (0) Oriented to Own Ability Fall Score: 0 Fall Risk Score Definition: No Risk: No action required Datetime: 12/06/2018 08:06 Time of Arrival: 12/06/2018 07:27 EGA: 36.6 Arrived By: Ambulatory Arrived From: Home Chief Complaint: Low iron Movement: Present Contractions: Denies/Absent Rupture of Membranes: Denies Vaginal Bleeding: None Vaginal Discharge: Denies Recent Sexual Intercouse: Denies Abdominal Trauma: Not Applicable Patient Complaints: Other Time Provider Notified: 12/06/2018 09:00 Provider Notified: DR GALLARDO Initial Plan: NST BPP Datetime: 12/06/2018 08:05 Labor Evaluation Frequency: OCCAS Monitor Mode: External Duration (sec)2399: 60-90 Quality: Mild Pattern: Normal: <= 5 Contractions in 10 Minutes Resting Tone [place]: Relaxed Heart Rate FHR Baseline Rate: 130 Monitor Mode: External US Variability: Moderate 6-25 bpm Accelerations: 15X15 Decelerations: None Category: Category I Datetime: 12/01/2018 09:48 Fall Score: 0 Fall Risk Score Definition: No Risk: No action required Datetime: 12/01/2018 09:47 EGA: 36.1 Datetime: 11/28/2018 07:20 Fall Score: 0 Fall Risk Score Definition: No Risk: No action required Datetime: 11/28/2018 07:10 EGA: 35.5 Datetime: 11/27/2018 07:57 Fall Score: 0 Fall Risk Score Definition: No Risk: No action required Datetime: 11/27/2018 07:56 EGA: 35.4 Datetime: 11/26/2018 12:24 Fall Score: 0 Fall Risk Score Definition: No Risk: No action required Datetime: 11/26/2018 12:22 EGA: 35.3
--- NOTE | 2018-12-06 17:05 | PN ---
Triage Information Date/Time Reason for visit: Patient is here for NST and BPP Weeks of Gestation Patient is a 22-year-old 3 para 2 at 36 weeks and 6 days of gestation with estimated date of delivery December 28, 2018 She has chronic anemia and status post iron infusion treatments She is here for NST and BPP Patient reports positive movement, denies uterine contractions, denies vaginal bleeding or leaking fluid /Para 3 para 2 Diabetes: none Hypertention: none Objective Vital Signs Date Temp Pulse Resp B/P (MAP) Pulse Ox O2 O2 Flow FiO2 Time Delivery Rate 12/06/18 98.2 80 19 101/61 Room Air 07:56 (74) Heart Rate: 140's Heart Rate Comments heart rate tracing category 1 Contractions: None Results/Medications Imaging Results PROCEDURE: OB ultrasound for biophysical profile CLINICAL INDICATION: Decreased movement TECHNIQUE: Multiple sonographic images of the pelvis were obtained. Transabdominal view of the gravid uterus are available for review. The images were reviewed on a PACS workstation. COMPARISON: US PELVIS 12/01/2018 FINDINGS: Fetus is vertex presentation. Placenta is positioned posteriorly. breathing movement = 2/2 tone = 2/2 motion = 2/2 MARNIE = 2/2 Single live intrauterine with cardiac activity is identified. heart rate measures 133.9 beats per minute. The amniotic -fluid volume equals approximately 10.5 cm, within normal limits. Previously, the amniotic fluid volume measured 12.7 cm. No other abnormality is seen. IMPRESSION: 1. Single viable intrauterine gestation. 2. Biophysical profile = 8/8. 3. MARNIE = 10.5 cm. RPTAT: AA Physician Iwona Date Time Electronically viewed and signed by Physician Iwona on 12/06/2018 08:30 BP/ CC: MARCIAL GALLARDO MD [phone] Disposition: Discharge Assessment/Plan kick count instructions were given Labor precautions were given Patient instructed to return in 2 days for repeat NST and BPP Patient instructed to follow-up with [facility] in 1 to 2 days FLAVIO RAMOS MD Dec 06, 2018 17:05
== END 2018-12-06 09:40 | disposition home or self-care (01) ==
LOC: OBT 07:36 → L-D 07:36 → OBT 09:40
PROVIDERS: ATTEND Obstetrics & Gynecology
DX: O36.8330 Maternal care for abnormalities of the fetal heart rate or rhythm, third trimester, not applicable or unspecified (principal); Z3A.36 36 weeks gestation of pregnancy
CPT/HCPCS: 76818; Z7500; G0463

== ENCOUNTER 2018-12-09 10:12 | Outpatient (CLI) | payer OTHER ==
[~2018-12-09] VITALS: Ht 154.9 cm; Wt 53.4 kg
[2018-12-09 10:32] VITALS: Ht 154.9 cm; Wt 53.4 kg
[2018-12-09 10:33] VITALS: BP 97/56
--- NOTE | 2018-12-09 13:40 | TRIAGE ---
OB Triage Datetime Report Generated by CPN: 12/09/2018 13:39 Datetime: 12/09/2018 12:05 Stage of : OB Triage Labor Evaluation Frequency: irregular Monitor Mode: External Duration (sec)2399: 50 Pattern: Normal: <= 5 Contractions in 10 Minutes Resting Tone [place]: Relaxed Pain Presence: None/Denies Pain Type: N/A Datetime: 12/09/2018 11:18 Stage of : OB Triage Labor Evaluation Frequency: IRREGULAR Monitor Mode: External Duration (sec)2399: 60 Pattern: Normal: <= 5 Contractions in 10 Minutes Resting Tone [place]: Relaxed Heart Rate FHR Baseline Rate: 135 Monitor Mode: External US Variability: Moderate 6-25 bpm Accelerations: 15X15 Decelerations: None Category: Category I Datetime: 12/09/2018 10:48 Comments: US AT BEDSIDE Datetime: 12/09/2018 10:24 Stage of : OB Triage Assessment Type: Triage Time of Arrival: 12/09/2018 10:05 EGA: 37.2 Arrived By: Ambulatory Arrived From: Home Chief Complaint: F/UP NST BPP Movement: Present Contractions: Denies/Absent Rupture of Membranes: Denies Vaginal Bleeding: None Vaginal Discharge: Denies Recent Sexual Intercouse: Denies Abdominal Trauma: Not Applicable Patient Complaints: None Time Provider Notified: 12/09/2018 11:35 Provider Notified: DR. GALLARDO Initial Plan: NST BPP Maternal Assessment Level of Consciousness: Fully Conscious DTR's/Clonus: DTRs 2+; No Clonus Headache: Denies Blurred Vision: No Respiratory Effort: Unlabored; Regular Rhythm; Equal Expansion Breath Sounds, Left: Clear and Equal Breath Sounds, Right: Clear and Equal Nausea/Vomiting: Denies RUQ Epigastric Pain: Denies Lower Extremities Edema: None Degree: None Upper Extremities Edema: None Degree: None Facial Edema: None Temperature Route: Oral Fall Risk Assessment History of Falling: (0) No Secondary Diagnosis: (0) No Ambulatory Aid: (0) Bedrest/Nurse Assist IV Therapy: (0) No Gait: (0) Normal/Bedrest/Immobile Mental Status: (0) Oriented to Own Ability Fall Score: 0 Fall Risk Score Definition: No Risk: No action required Monitor Mode: External Monitor Mode: External US Pain Assessment Pain Scale: 0 Pain Presence: None/Denies Datetime: 12/06/2018 08:07 Fall Score: 0 Fall Risk Score Definition: No Risk: No action required Datetime: 12/06/2018 08:06 EGA: 36.6 Datetime: 12/01/2018 09:48 Fall Score: 0 Fall Risk Score Definition: No Risk: No action required Datetime: 12/01/2018 09:47 EGA: 36.1 Datetime: 11/28/2018 07:20 Fall Score: 0 Fall Risk Score Definition: No Risk: No action required Datetime: 11/28/2018 07:10 EGA: 35.5 Datetime: 11/27/2018 07:57 Fall Score: 0 Fall Risk Score Definition: No Risk: No action required Datetime: 11/27/2018 07:56 EGA: 35.4 Datetime: 11/26/2018 12:24 Fall Score: 0 Fall Risk Score Definition: No Risk: No action required Datetime: 11/26/2018 12:22 EGA: 35.3
--- NOTE | 2018-12-09 14:58 | PN ---
Triage Information Date/Time December 09, 2018 Reason for visit: Weeks of Gestation 37 weeks and 2 days /Para 3 para 2 Diabetes: none Hypertention: none Additional information 22-year-old G3, P2 with IUP at 37 weeks and 2 days and history of anemia and current was sent to the day here for testing including NST/BPP. Patient denies any leaking of fluid, vaginal bleeding or decreased movement. She has been taking iron. Objective Vital Signs Date Temp Pulse Resp B/P (MAP) Pulse Ox O2 O2 Flow FiO2 Time Delivery Rate 12/09/18 98.5 97/56 (70) 10:33 Heart Rate: 130's Heart Rate Comments NST: Category 1 Contractions: < 5 Minutes Apart Exam Appearance: Alert and oriented x4 does not appear to be in acute distress Abdomen: Soft, gravid, fundal height consider gestational age NST: Category 1 Contractions every 4 to 5 minutes noted BPP: 8/8 MARNIE: 13.4 Results/Medications Imaging Results PROCEDURE: US OB biophysical profile. CLINICAL INDICATION: decreased movements, contractions TECHNIQUE: Multiple sonographic images of the pelvis were obtained. The images were reviewed on a PACS workstation. COMPARISON: 12/06/18 FINDINGS: There is a single live intrauterine gestation. Cardiac activity is present with 132 beats per minute. There is a vertex presentation. The placenta is posterior. There is no evidence of placental abruption. MARNIE = 13.4 cm. Biophysical profile: movement 2/2 tone 2/2. breathing 2/2 MARNIE 2/2 Total 02/10 RPTAT: AA . IMPRESSION: Normal biophysical profile. . Disposition: Discharge Assessment/Plan IUP at 37 weeks and 2 days Anemia in Patient undergoing testing twice a week testing reassuring. No OB problem at this time Occasional contraction. Patient is asymptomatic. DC home follow up with OB tomorrow for scheduled aopt Follow-up appointment for NST/BPP in 3 days. Labor precautions kick count discussed with patient. Patient verbalized understanding. All questions answered. ALEYDA HENRY MD Dec 09, 2018 14:58
== END 2018-12-09 13:40 | disposition home or self-care (01) ==
LOC: OBT 10:12 → L-D 10:14 → OBT 13:40
PROVIDERS: ATTEND Obstetrics & Gynecology
DX: O99.013 Anemia complicating pregnancy, third trimester (principal); Z3A.37 37 weeks gestation of pregnancy
CPT/HCPCS: 76818; Z7500; G0463

== ENCOUNTER 2018-12-28 09:36 | Inpatient (IN) | payer OTHER ==
[~2018-12-28] VITALS: Ht 154.9 cm; Wt 54.6 kg
[2018-12-28 09:42] VITALS: Ht 154.9 cm; Wt 54.6 kg
[2018-12-28 09:53] VITALS: BP 99/61; PULSE 75; RESP 18
[2018-12-28] MEDS ORDERED: METHYLERGONOVINE 0.2 MG INJ IM PRN (12:00)
[2018-12-28] MEDS ORDERED: MISOPROSTOL 200 MCG TAB PR PRN (12:00)
[2018-12-28] MEDS ORDERED: OXYTOCIN 30 UNITS/LR 500 ML IV PRN (12:00)
[2018-12-28] MEDS ORDERED: BUTORPHANOL 2 MG INJ IV PRN ×2 (12:00)
[2018-12-28] MEDS ORDERED: OXYTOCIN 30 UNITS/LR 500 ML IV SCH ×3 (12:00)
[2018-12-28] MEDS ORDERED: LIDOCAINE 1% (MPF) 30 ML INJ INJ PRN (12:00)
[2018-12-28] MEDS ORDERED: CARBOPROST 250 MCG INJ IM PRN (12:00)
[2018-12-28] MEDS: LACTATED RINGER'S 1,000 ML IV SCH ×4 (12:08→22:22)
--- NOTE | 2018-12-28 12:33 | HP ---
Date/Time of Note Date/Time of Note DATE: 12/28/18 TIME: 12:31 OB - History Hx of Present Chief Complaint: contractions Estimated Due Date: Dec 28, 2018 : 3 Para: 2 Spontaneous : 0 Therapeutic : 0 Care: Good Care Ultrasounds: Normal mid trimester US Obstetrical Complications: None Medical Complications: Other (iron deficiency anemia) Past Family/Social History * Past Medical, Surgical, Family and Obstetric Histories reviewed from [facility]. GBS Status: Negative OB Admission Exam Vital Signs Vital Signs Vital Signs Date Temp Pulse Resp B/P (MAP) Pulse Ox O2 O2 Flow FiO2 Time Delivery Rate 12/28/18 98.4 75 18 99/61 (74) 09:53 Physical Exam HEENT: WNL Heart: Rhythm Normal Lungs: Clear, Equal Abdomen: WNL Extremities: Normal Reflexes: Normal Cervical Dilatation: 3cm Effacement: 50% Station: -1 Membranes: Intact Heart Rate: 120's Accelerations: Accelerations Present Decelerations: No Decelerations Varibility: Moderate Last 72 hours Lab Results CBC & BMP 12/28/18 10:08 OB Assessment/Plan Reason for admission: other Other Assessment: early labor Plan: Other Other plan: Augment labor with oxytocin MARCIAL GALLARDO MD Dec 28, 2018 12:33
--- NOTE | 2018-12-28 20:06 | PREAC ---
Date/Time of Note Date/Time of Note DATE: 12/28/18 TIME: 20:05 Anesthesia Eval and Record Evaluation Time Pre-Procedure Interview DATE: 12/28/18 TIME: 20:05 Age 22 Sex female NPO: 8 hrs Preoperative diagnosis intrauterine Planned procedure labor epidural Past Medical History Past Medical History: Includes Heme: Anemia : : (3), Para: (2) Surgery & Anesthesia Issues No known issue Meds Anticoagulation: No Beta Mayuri within 24 hr: No Reason Beta Mayuri not given: Pt. not on B-Mayuri Reported Medications Ferrous Sulfate* (Ferrous Sulfate*) 325 Mg Tabec, 325 MG PO DAILY, TAB 12/01/18 Vit #76/Iron,Carb/FA (Pnv 29-1 Tablet) 1 Each Tablet, 1 EACH PO, TAB 11/26/18 Current Medications Lactated Ringer's 1,000 ml @ 125 mls/hr Q8H IV Last administered on 12/28/18at 19:01; Admin Dose 125 MLS/HR; Start 12/28/18 at 11:35 Butorphanol Tartrate (Stadol) 1 mg Q2H PRN IV .PAIN SCALE 1-5; Start 12/28/18 at 12:00 Butorphanol Tartrate (Stadol) 2 mg Q2H PRN IV .PAIN SCALE 6-10; Start 12/28/18 at 12:00 Lidocaine (Xylocaine 1% (Mpf)) 30 ml ONCE PRN INJ .EPISIOTOMY; Start 12/28/18 at 12:00 Oxytocin/Lactated Ringer's 500 ml @ 500 mls/hr ONCE POST IV ; Start 12/28/18 at 12:00 Oxytocin/Lactated Ringer's 500 ml @ 125 mls/hr POST IV ; Start 12/28/18 at 12:00 Oxytocin/Lactated Ringer's 500 ml @ 0 mls/hr ONCE PRN IV .VAGINAL BLEEDING; Start 12/28/18 at 12:00 Methylergonovine Maleate (Methergine) 0.2 mg ONCE PRN IM .VAGINAL BLEEDING; Start 12/28/18 at 12:00 Carboprost Tromethamine (Hemabate) 250 mcg ONCE PRN IM .VAGINAL BLEEDING; Start 12/28/18 at 12:00 Misoprostol (Cytotec) 1,000 mcg ONCE PRN [place] .VAGINAL BLEEDING; Start 12/28/18 at 12:00 Oxytocin/Lactated Ringer's 500 ml @ 0 mls/hr FOR AUGMENTATION IV Last admini stered on 12/28/18at 12:39; Admin Dose 1 MLS/HR; Start 12/28/18 at 12:00 Meds reviewed: Yes Allergies Coded Allergies: No Known Allergy (Unverified , 11/28/18) Allergies Reviewed: Yes Labs/Studies Labs Reviewed: Reviewed by anesthesiologist Result Diagram: 12/28/18 1008 Laboratory Tests 12/28/18 10:08 Blood Bank Test 12/28/18 12:00 Antibody Screen NEGATIVE Blood Type A POSITIVE Rh Immune Globulin Candidate NO test: N/A Pre-procedure Exam Last vitals Vital Signs Date Temp Pulse Resp B/P (MAP) Pulse Ox O2 O2 Flow FiO2 Time Delivery Rate 12/28/18 98.4 75 18 99/61 (74) 09:53 Airway: Adequate mouth opening, Adequate thyromental dist Mallampati: Mallampati II Teeth: Normal Lung: Normal Heart: Normal ASA Physical Status ASA physical status: 2 Emergency: None Planned Anesthetic Neuraxial: Epidural Planned Pain Management Epidural Pre-operative Attestations Prior to commencing anesthesia and surgery, the patient was re-evaluated, there was verification of: *The patient's identity *The results of appropriate recent lab work and preoperative vital signs *The above evaluation not changing prior to induction *Anesthetic plan, risk benefits, alternative and complications discussed with patient/family; questions answered; patient/family understands, accepts and wishes to proceed. MARZIOL MONROE MD Dec 28, 2018 20:05
[2018-12-28] MEDS ORDERED: NALOXONE (0.4 MG/ML) INJ IV PRN (20:30)
[2018-12-28] MEDS ORDERED: DIPHENHYDRAMINE 50 MG INJ IV PRN (20:30)
[2018-12-28] MEDS ORDERED: FENTAnyl 2MCG/ML-ROPIV 0.2% 100 ML BAG EPI SCH (20:30)
--- NOTE | 2018-12-28 20:43 | PAC ---
Date/Time of Note Date/Time of Note DATE: 12/28/18 TIME: 20:43 Post-Anesthesia Notes Post-Anesthesia Note Last documented vital signs Vital Signs Date Temp Pulse Resp B/P (MAP) Pulse Ox O2 O2 Flow FiO2 Time Delivery Rate 12/28/18 98.4 75 18 99/61 (74) 09:53 Activity: WNL Respiratory function: WNL Cardiovascular function: WNL Mental status: Baseline Pain reasonably controlled: Yes Hydration appropriate: Yes Nausea/Vomiting absent: Yes Comments BP: 112/68 HR: 92 RR: 16 T: 98.4 SaO2: 100% MARIZOL MONROE MD Dec 28, 2018 20:43
[2018-12-29] MEDS: ONDANSETRON 4 MG INJ IV PRN ×2 (00:29→00:34)
[2018-12-29] MEDS ORDERED: TRANEXAMIC ACID 1GM/100ML(PMX) 100 ML IVPB ONE (00:30)
--- NOTE | 2018-12-29 00:54 | LDN ---
Date/Time of Note Date/Time of Note DATE: 12/29/18 TIME: 00:49 Delivery Summary over intact perineum. Placenta and membranes delivered spontaneously and complete. Uterine atony noted. Methergine, Hemabate, Cytotec and tranexamic acid given. Using large curette, sharp curettage was performed. Weeks of Gestation 40 weeks Placenta Delivered: Spontaneously Meconium: Light Episiotomy: No Laceration repair: Second degree perineal alceration repaired with 3-0 Vicryl. Anesthesia type: Epidural Estimated blood loss: 500 Sponge & Needle done & correct: Yes All needle counts correct: Yes Any foreign bodies felt in the: No Delivery Information Sex Infant Sex: male Apgars 1 Minute: 9 5 Minute: 9 Suctioning Nose & mouth suctioned at isaak: No Delee suction performed: No Umbilical Cord Umbilical cord with: 3 Vessels Cord presentations: no nuchal cord Cord Blood was obtained: Yes Mother & Baby Disposition Disposition Mom & Baby to Maternity; Good: Yes MARCIAL GALLARDO MD Dec 29, 2018 00:54
[2018-12-29] MEDS ORDERED: CEFAZOLIN 2 GM/50 ML (PMX) 50 ML IVPB ONE (01:00)
[2018-12-29 02:30] VITALS: BP 136/88; PULSE 72; RESP 18
[2018-12-29] MEDS: LACTATED RINGER'S 1,000 ML IV* SCH ×3 (02:52→17:16)
[2018-12-29] MEDS ORDERED: WITCH HAZEL/GLYCERIN PAD PR PRN (03:00)
[2018-12-29] MEDS ORDERED: OXYTOCIN 30 UNITS/LR 500 ML IV PRN (03:00)
[2018-12-29] MEDS ORDERED: HYDROCODONE/APAP (5/325) TAB PO PRN (03:00)
[2018-12-29] MEDS ORDERED: MISOPROSTOL 200 MCG TAB PR PRN (03:00)
[2018-12-29] MEDS ORDERED: BENZOCAINE 20% 56 ML SPRAY TOP PRN (03:00)
[2018-12-29] MEDS ORDERED: METHYLERGONOVINE 0.2 MG INJ IM PRN (03:00)
[2018-12-29] MEDS ORDERED: DIBUCAINE 1% 30 GM OINT TOP PRN (03:00)
[2018-12-29] MEDS ORDERED: ACETAMINOPHEN 325 MG TAB PO PRN (03:00)
[2018-12-29] MEDS ORDERED: CARBOPROST 250 MCG INJ IM PRN (03:00)
[2018-12-29 03:29] VITALS: BP 124/77; PULSE 67; RESP 18
[2018-12-29] MEDS: IBUPROFEN 600 MG TAB PO SCH ×3 (06:00→17:15)
[2018-12-29 08:00] VITALS: BP 112/73; PULSE 68; RESP 18
[2018-12-29] MEDS: SENNA/DOCUSATE NA (8.6MG/50MG) TAB PO SCH ×2 (09:00→21:00)
--- NOTE | 2018-12-29 12:55 | QN ---
Documentation Comment No complaint afebrile VSS Fundus firm Lochia scant Hgb 7.2 Stable Continue present care. MARCIAL GALLARDO MD Dec 29, 2018 12:55
[2018-12-29 16:00] VITALS: BP 100/62; PULSE 67; RESP 18
[2018-12-29 20:00] VITALS: BP 97/74; PULSE 72; RESP 18
[2018-12-30] VITALS (16 sets, daily range): BP systolic 81–119; BP diastolic 45–88; PULSE 54–77; RESP 17–20
[2018-12-30] MEDS: LACTATED RINGER'S 1,000 ML IV* SCH ×3 (02:52→18:12)
[2018-12-30] MEDS: IBUPROFEN 600 MG TAB PO SCH ×4 (06:00→17:12)
[2018-12-30] MEDS: SENNA/DOCUSATE NA (8.6MG/50MG) TAB PO SCH ×2 (09:00→21:00)
--- NOTE | 2018-12-30 14:50 | QN ---
Documentation Comment No complaint afebrile VSS Fundus firm Hgb 6 Patient counseled about risks, benefits and alternatives of RBC transfusion. Patient stated she understood and gave informed consent of receiving RBC Transfuse 2 units RBC. MARCIAL GALLARDO MD Dec 30, 2018 14:50
[2018-12-30] MEDS ORDERED: FERROUS SULFATE 60 MG/ML 5ML CUP PO ONE (16:00)
[2018-12-30] MEDS ORDERED: ACETAMINOPHEN 500 MG TAB PO PRN (20:00)
[2018-12-31] VITALS: BP 115/77; PULSE 56; RESP 18
[2018-12-31] MEDS: LACTATED RINGER'S 1,000 ML IV* SCH ×3 (02:52→18:15)
[2018-12-31 04:00] VITALS: BP 92/57; PULSE 65; RESP 18
[2018-12-31] MEDS: IBUPROFEN 600 MG TAB PO SCH ×5 (06:00→22:57)
[2018-12-31 06:26] VITALS: BP 109/76; PULSE 67
[2018-12-31] MEDS: SENNA/DOCUSATE NA (8.6MG/50MG) TAB PO SCH ×2 (07:56→21:00)
[2018-12-31 08:00] VITALS: BP 103/67; PULSE 74; RESP 18
[2018-12-31] MEDS ORDERED: DIPHTH/TET/ACEL PERTUSS (ADULT) 0.5 ML VIAL IM* ONE (09:00)
--- NOTE | 2018-12-31 11:35 | CONS ---
Consultation Date/Type/Reason Admit Date/Time Dec 28, 2018 at 11:54 Date of Consultation: Dec 30, 2018 Type of Consult anesthesia Reason for Consultation headache Requesting Provider: CRISTIAN CULLEN MD Date/Time of Note DATE: 12/31/18 TIME: 11:29 Hx of Present Illness anesthesia was called for a 23 year female for headache after epidural. pt comlains of headache in the middle and back of head, /10, throbbing pain, with upper back pain/ pt has pain in supoine, semi sitting, but she denies pain on standing or sitting position. no dizziness, N/V. doesnt seem to be PDPH. recommend taking pain medicine round the clock and fluid. and call back if nedded Musculoskeletal: back pain, neck pain Past Medical History Home Meds Reported Medications Ferrous Sulfate* (Ferrous Sulfate*) 325 Mg Tabec, 325 MG PO DAILY, TAB 12/01/18 Vit #76/Iron,Carb/FA (Pnv 29-1 Tablet) 1 Each Tablet, 1 EACH PO, TAB 11/26/18 Medications Current Medications Lactated Ringer's 1,000 ml @ 125 mls/hr Q8H IV* ; Start 12/29/18 at 02:52 Ibuprofen (Motrin) 600 mg Q6 PO Last administered on 12/30/18at 17:12; Admin Dose 600 MG; Start 12/29/18 at 06:00 Acetaminophen/ Hydrocodone Bitart ([place] (5/325)) 1 tab Q4H PRN PO .PAIN 1-5; Start 12/29/18 at 03:00 Senna/Docusate Sodium (Senokot-S) 1 tab BID PO ; Start 12/29/18 at 09:00 Witch [place]/ Glycerin (Tucks Pads) 1 pad BEDSIDE MEDICATION PRN [place] .HEMORRHOID/EPISIOTOMY PAIN Last administered on 12/29/18at 03:31; Admin Dose 1 PAD; Start 12/29/18 at 03:00 Benzocaine (Dermoplast [place]) 1 spray BEDSIDE MEDICATION PRN [place] .HEMMORHOID/EPISIOTOMY PAIN Last administered on 12/29/18at 03:31; Admin Dose 1 SPRAY; Start 12/29/18 at 03:00 Dibucaine (Nupercainal) 1 applic BEDSIDE MEDICATION PRN [place] .HEMMORHOID/EPISIOTOMY; Start 12/29/18 at 03:00 Oxytocin/Lactated Ringer's 500 ml @ 0 mls/hr ONCE PRN IV .VAGINAL BLEEDING Last administered on 12/29/18at 05:45; Admin Dose 125 MLS/HR; Start 12/29/18 at 03:00 Methylergonovine Maleate (Methergine) 0.2 mg ONCE PRN IM .VAGINAL BLEEDING; S tart 12/29/18 at 03:00 Carboprost Tromethamine (Hemabate) 250 mcg ONCE PRN IM .VAGINAL BLEEDING; Start 12/29/18 at 03:00 Misoprostol (Cytotec) 1,000 mcg ONCE PRN [place] .VAGINAL BLEEDING; Start 12/29/18 at 03:00 Acetaminophen (Tylenol Tab) 1,000 mg Q6H PRN PO MILD PAIN(1-3)OR ELEVATED TEMP; Start 12/30/18 at 20:00 Allergies: Coded Allergies: No Known Allergy (Unverified , 11/28/18) Social History Smoking Status: Never smoker Exam/Review of Systems Exam Vitals Vital Signs Date Temp Pulse Resp B/P (MAP) Pulse Ox O2 O2 Flow FiO2 Time Delivery Rate 12/31/18 97.9 74 18 103/67 Room Air 08:00 (79) Intake and Output 12/30/18 12/30/18 12/31/18 1515:00 23:00 07:00 IntakeIntake Total 700 ml BalanceBalance 700 ml Results Result Diagram: 12/31/18 0753 Results 24hrs Laboratory Tests Test 12/30/18 18:58 12/31/18 07:53 White Blood Count 10.6 # 11.3 H Red Blood Count 4.02 #L 4.40 Hemoglobin 8.8 #L 9.5 L Hematocrit 29.7 #L 32.5 L Mean Corpuscular Volume 73.9 L 73.9 L Mean Corpuscular Hemoglobin 21.9 L 21.6 L Mean Corpuscular Hemoglobin Concent 29.6 L 29.2 L Red Cell Distribution Width 24.7 H 24.9 H Platelet Count 216 247 Mean Platelet Volume 9.7 9.7 Immature Granulocytes % 0.500 H 0.400 Neutrophils % 61.1 59.1 Lymphocytes % 30.4 33.6 Monocytes % 7.0 5.5 Eosinophils % 0.7 1.0 Basophils % 0.3 0.4 Nucleated Red Blood Cells % 0.2 H 0.3 H Immature Granulocytes # 0.050 H 0.040 H Neutrophils # 6.5 6.7 Lymphocytes # 3.2 H 3.8 H Monocytes # 0.7 0.6 Eosinophils # 0.1 0.1 Basophils # 0.0 0.0 Nucleated Red Blood Cells # 0.0 0.0 Medications Medication Current Medications Lactated Ringer's 1,000 ml @ 125 mls/hr Q8H IV* ; Start 12/29/18 at 02:52 Ibuprofen (Motrin) 600 mg Q6 PO Last administered on 12/30/18at 17:12; Admin Dose 600 MG; Start 12/29/18 at 06:00 Acetaminophen/ Hydrocodone Bitart (Advance (5/325)) 1 tab Q4H PRN PO .PAIN 1-5; Start 12/29/18 at 03:00 Senna/Docusate Sodium (Senokot-S) 1 tab BID PO ; Start 12/29/18 at 09:00 Witch [place]/ Glycerin (Tucks Pads) 1 pad BEDSIDE MEDICATION PRN [place] .HEMORRHOID/EPISIOTOMY PAIN Last administered on 12/29/18at 03:31; Admin Dose 1 PAD; Start 12/29/18 at 03:00 Benzocaine (Dermoplast [place]) 1 spray BEDSIDE MEDICATION PRN TOP .HEMMORHOID/EPISIOTOMY PAIN Last administered on 12/29/18at 03:31; Admin Dose 1 SPRAY; Start 12/29/18 at 03:00 Dibucaine (Nupercainal) 1 applic BEDSIDE MEDICATION PRN TOP .HEMMORHOID/EPISIOTOMY; Start 12/29/18 at 03:00 Oxytocin/Lactated Ringer's 500 ml @ 0 mls/hr ONCE PRN IV .VAGINAL BLEEDING Last administered on 12/29/18at 05:45; Admin Dose 125 MLS/HR; Start 12/29/18 at 03:00 Methylergonovine Maleate (Methergine) 0.2 mg ONCE PRN IM .VAGINAL BLEEDING; Start 12/29/18 at 03:00 Carboprost Tromethamine (Hemabate) 250 mcg ONCE PRN IM .VAGINAL BLEEDING; Start 12/29/18 at 03:00 Misoprostol (Cytotec) 1,000 mcg ONCE PRN [place] .VAGINAL BLEEDING; Start 12/29/18 at 03:00 Acetaminophen (Tylenol Tab) 1,000 mg Q6H PRN PO MILD PAIN(1-3)OR ELEVATED TEMP; Start 12/30/18 at 20:00 CRISTIAN CULLEN MD Dec 31, 2018 11:35
--- NOTE | 2018-12-31 12:07 | PREAC ---
Date/Time of Note Date/Time of Note DATE: 12/30/18 TIME: 12:06 Anesthesia Eval and Record Evaluation Time Pre-Procedure Interview DATE: 12/31/18 TIME: 12:06 Age 23 Sex female NPO: 2 hrs Preoperative diagnosis pdph Planned procedure BLOOD PATCH Past Medical History Past Medical History: None Surgery & Anesthesia Issues No known issue Meds Anticoagulation: No Beta Mayuri within 24 hr: No Reason Beta Mayuri not given: Pt. not on B-Mayuri Reported Medications Ferrous Sulfate* (Ferrous Sulfate*) 325 Mg Tabec, 325 MG PO DAILY, TAB 12/01/18 Vit #76/Iron,Carb/FA (Pnv 29-1 Tablet) 1 Each Tablet, 1 EACH PO, TAB 11/26/18 Current Medications Lactated Ringer's 1,000 ml @ 125 mls/hr Q8H IV* ; Start 12/29/18 at 02:52 Ibuprofen (Motrin) 600 mg Q6 PO Last administered on 12/30/18at 17:12; Admin Dose 600 MG; Start 12/29/18 at 06:00 Acetaminophen/ Hydrocodone Bitart ([place] (5/325)) 1 tab Q4H PRN PO .PAIN 1-5; Start 12/29/18 at 03:00 Senna/Docusate Sodium (Senokot-S) 1 tab BID PO ; Start 12/29/18 at 09:00 Witch [place]/ Glycerin (Tucks Pads) 1 pad BEDSIDE MEDICATION PRN [place] .HEMORRHOID/EPISIOTOMY PAIN Last administered on 12/29/18at 03:31; Admin Dose 1 PAD; Start 12/29/18 at 03:00 Benzocaine (Dermoplast [place]) 1 spray BEDSIDE MEDICATION PRN TOP .HEMMORHOID/EPISIOTOMY PAIN Last administered on 12/29/18at 03:31; Admin Dose 1 SPRAY; Start 12/29/18 at 03:00 Dibucaine (Nupercainal) 1 applic BEDSIDE MEDICATION PRN TOP .HEMMORHOID/EPISIOTOMY; Start 12/29/18 at 03:00 Oxytocin/Lactated Ringer's 500 ml @ 0 mls/hr ONCE PRN IV .VAGINAL BLEEDING Last administered on 12/29/18at 05:45; Admin Dose 125 MLS/HR; Start 12/29/18 at 03:00 Methylergonovine Maleate (Methergine) 0.2 mg ONCE PRN IM .VAGINAL BLEEDING; Start 12/29/18 at 03:00 Carboprost Tromethamine (Hemabate) 250 mcg ONCE PRN IM .VAGINAL BLEEDING; Start 12/29/18 at 03:00 Misoprostol (Cytotec) 1,000 mcg ONCE PRN [place] .VAGINAL BLEEDING; Start 12/29/18 at 03:00 Acetaminophen (Tylenol Tab) 1,000 mg Q6H PRN PO MILD PAIN(1-3)OR ELEVATED TEMP; Start 12/30/18 at 20:00 Meds reviewed: Yes Allergies Coded Allergies: No Known Allergy (Unverified , 11/28/18) Allergies Reviewed: Yes Labs/Studies Labs Reviewed: Reviewed by anesthesiologist Result Diagram: 12/31/18 0753 Laboratory Tests 12/31/18 07:53 test: Negative Studies: CXR (N/A) Pre-procedure Exam Last vitals Vital Signs Date Temp Pulse Resp B/P (MAP) Pulse Ox O2 O2 Flow FiO2 Time Delivery Rate 12/31/18 97.9 74 18 103/67 Room Air 08:00 (79) Airway: Adequate mouth opening Mallampati: Mallampati I Teeth: Normal Lung: Normal Heart: Normal ASA Physical Status ASA physical status: 1 Emergency: None Pre-operative Attestations Prior to commencing anesthesia and surgery, the patient was re-evaluated, there was verification of: *The patient's identity *The results of appropriate recent lab work and preoperative vital signs *The above evaluation not changing prior to induction *Anesthetic plan, risk benefits, alternative and complications discussed with patient/family; questions answered; patient/family understands, accepts and wishes to proceed. CIRSTIAN CULLEN MD Dec 31, 2018 12:07
[2018-12-31 16:00] VITALS: BP 112/69; PULSE 61; RESP 18
--- NOTE | 2018-12-31 19:48 | DS ---
Date/Time of Note Date/Time of Note DATE: 12/31/18 TIME: 19:47 Obstetrical Discharge Record Final Diagnosis Final Diagnosis: Term delivered Other Final Diagnosis Anemia associated with acute blood loss Vaginal Delivery Obstetrical Delivery: Spontaneous Complications Augmentation: Yes Condition on Discharge Physical Assessment Voiding: Yes Bowel Movement: Yes Breast: Soft, non-tender, Filling Fundus: Firm Calf Tenderness: No Patient Condition: Stable MARCIAL GALLARDO MD Dec 31, 2018 19:48
[2018-12-31 20:30] VITALS: BP 127/77; PULSE 67; RESP 19
--- NOTE | 2019-01-01 23:38 | DELSUM ---
Delivery Summary A-C Datetime Report Generated by CPN: 01/01/2019 23:38 DELIVERY PERSONNEL Neck Band Maker: [place], [place] MATERNAL INFORMATION Delivery Anesthesia: Epidural Medications in Delivery: LR WITH 30 UNITS PITOCIN. Delivery QBL (ml): 500 Placenta Cultured: No Maternal Complications: None LABOR SUMMARY EDC: 12/28/2018 00:00 No. Babies in Womb: 1 Attempted: No Labor Anesthesia: Epidural LABOR INFORMATION Reason for Induction: Not Applicable Onset of Labor: 12/28/2018 15:03 Complete Dilatation: 12/28/2018 23:54 Oxytocin: Augmentation Group B Beta Strep: Negative Antibiotics # of Doses: 0 Steroids Given: None Reason Steroids Not Administered: Not Applicable MEMBRANES Membranes Rupture Method: Artificial Rupture of Membranes: 12/28/2018 21:59 Length of Rupture (hr): 1.92 Amniotic Fluid Color: Clear Amniotic Fluid Amount: Small Amniotic Fluid Odor: None STAGES OF LABOR Stage 1 hr: 8 Stage 1 min: 51 Stage 2 hr: 0 Stage 2 min: 0 Stage 3 hr: 0 Stage 3 min: 12 Total Time in Labor hr: 9 Total Time in Labor min: 3 VAGINAL DELIVERY Episiotomy: None Laceration Extension: Second Degree Laceration Type: Perineal Laceration Repair: Yes Initial Vag Sponge Count: 10 Final Vag Sponge Count: 10 Initial Vag Sharps Count: 2 Final Vag Sharps Count: 2 Sponge Count Correct: Yes; Vaginal Sweep Performed Sharps Count Correct: Yes BABY A INFORMATION Delivery Date/Time: 12/28/2018 23:54 (Annotations: Data stored by N on behalf of user) Method of Delivery: Vaginal Born in Route : No : N/A Forceps: N/A Vacuum Extraction: N/A Shoulder Dystocia : N/A SHOULDER DYSTOCIA BABY A Delivery Date/Time: 12/28/2018 23:54 (Annotations: Data stored by [facility] on behalf of user) PRESENTATION/POSITION BABY A Presentation: Cephalic Cephalic Presentation: Vertex Vertex Position: Left Occipital Anterior Breech Presentation: N/A PLACENTA INFORMATION BABY A Placenta Delivery Time : 12/29/2018 00:06 Placenta Method of Delivery: Spontaneous Placenta Status: Delivered SCORES BABY A Heart Rate 1 min: >100 bpm Resp Effort 1 min: Good Cry Reflex Irritability 1 min: Cough/Sneeze/Pulls Away Muscle Tone 1 min: Active Motion Color 1 min: Body [place], Extremit Blue Resuscitation Effort 1 min: Tactile Stimulation SCORE 1 MIN: 9 Heart Rate 5 min: >100 bpm Resp Effort 5 min: Good Cry Reflex Irritability 5 min: Cough/Sneeze/Pulls Away Muscle Tone 5 min: Active Motion Color 5 min: Body [place], Extremit Blue Resuscitation Effort 5 min: Tactile Stimulation SCORE 5 MIN: 9 INFANT INFORMATION BABY A Gestational Age at Delivery: 40.0 Gestational Status: Full Term- 39- 40.6 Weeks Outcome : Liveborn, with signs of life Condition : Stable Infant Sex: Male IDENTIFICATION/MEDS BABY A ID Band Number: [id number] ID Band Location: Right Leg; Left Arm Sensor Applied: Yes Sensor Number: [id number] Sensor Location : Cord Clamp Vitamin K Given : Not Given Erythromycin Given: Not Given WEIGHT/LENGTH BABY A Infant Birthweight (gm): 3860 Weight (lb): 8 Weight (oz): 8 Length (in): 19.50 Infant Length (cm): 49.53 CORD INFORMATION BABY A No. Cord Vessels: 3 Nuchal Cord : N/A Cord Blood Taken: Yes Infant Suction: Mouth; Nose ASSESSMENT BABY A Complications: None Physical Findings at Delivery: Within Normal Limits Infant Respirations: Appears Normal Lehr Loader/ALS Called : No Infant Care By: DENTON Marrero RN Transferred To: [facility]
== END 2018-12-31 23:35 | disposition home or self-care (01) | DRG 806 ==
LOC: OBT 09:36 → L-D 09:37 → OBT 11:50 → L-D 11:54 → PP1 12-29 02:26
PROVIDERS: ADMIT Obstetrics & Gynecology; ATTEND Obstetrics & Gynecology
PROC: 4A1HXCZ Monitoring of Products of Conception, Cardiac Rate, External Approach (ICD-10-PCS; 2018-12-28)
PROC: 10E0XZZ Delivery of Products of Conception, External Approach (ICD-10-PCS; principal; 2018-12-29)
PROC: 0KQM0ZZ Repair Perineum Muscle, Open Approach (ICD-10-PCS; 2018-12-29)
PROC: 30233N1 Transfusion of Nonautologous Red Blood Cells into Peripheral Vein, Percutaneous Approach (ICD-10-PCS; 2018-12-30)
DX: O99.02 Anemia complicating childbirth (principal); D62 Acute posthemorrhagic anemia; Z37.0 Single live birth; O62.2 Other uterine inertia; Z3A.40 40 weeks gestation of pregnancy; O70.1 Second degree perineal laceration during delivery; O89.4 Spinal and epidural anesthesia-induced headache during the puerperium; O48.0 Post-term pregnancy
CPT/HCPCS: 36430; 62322; 76818; 85025; 85610; 85730; 86592; 86850; 86900; 86901; 86920; 87340; G0463; J0690; J2210; J2405; J2590; J3010; J7120; P9016